=== PATIENT | female | born 1950 | race Caucasian/White ===

== ENCOUNTER 2020-11-12 07:49 | Outpatient (REF) | payer OTHER, SELFPAY ==
--- NOTE | ~2020-11-12 | XR_ITS ---
EXAMINATION: BILATERAL KNEES CLINICAL INFORMATION: Pain. COMPARISON: July 26, 2019. TECHNIQUE: An AP view of each knee is provided along with lateral and sunrise views of the left knee. FINDINGS: A right knee prosthesis is intact without failure or migration. No acute fractures are present on the right. There is a moderate to large left knee joint effusion. There is mild tricompartment narrowing with mild osteophyte formation. There is no patellar subluxation. XR/XR knee LT 2V IMPRESSION: Moderate to large left knee joint effusion. No acute fractures. Mild left tricompartment joint space narrowing with osteophyte formation. Intact right knee prosthesis.
--- NOTE | ~2020-11-12 | XR_ITS ---
EXAMINATION: BILATERAL KNEES CLINICAL INFORMATION: Pain. COMPARISON: July 26, 2019. TECHNIQUE: An AP view of each knee is provided along with lateral and sunrise views of the left knee. FINDINGS: A right knee prosthesis is intact without failure or migration. No acute fractures are present on the right. There is a moderate to large left knee joint effusion. There is mild tricompartment narrowing with mild osteophyte formation. There is no patellar subluxation. XR/XR knee standing BI IMPRESSION: Moderate to large left knee joint effusion. No acute fractures. Mild left tricompartment joint space narrowing with osteophyte formation. Intact right knee prosthesis.
== END 2020-11-12 07:50 | disposition home or self-care (01) ==
LOC: HO.HOSX 07:49
PROVIDERS: Visit Provider Orthopaedic Surgery
DX: M17.12 Unilateral primary osteoarthritis, left knee (principal)
CPT/HCPCS: 20610; 73560; 73565; J1100

== ENCOUNTER → 2021-02-08 13:08 | Outpatient (BNVA) | payer OTHER, SELFPAY | PROVIDERS: Visit Provider Orthopaedic Surgery ==

== ENCOUNTER 2021-12-17 06:00 | Outpatient (REF) | payer OTHER, SELFPAY ==
[2021-12-17 11:30] LABS: MANUAL DIFF FLAG NO
[2021-12-17 11:37] LABS: Basophils Absolute Auto 0.1 X10*3/uL (0.0-0.2); Basophils Percent Auto 0.8 % (0-2); Eosinophils Absolute Auto 0.1 X10*3/uL (0.0-0.4); Hematocrit 40.8 % (37.0-47.0); Hemoglobin 13.9 g/dl (12.0-16.0); Imm Gran Abs Auto 0.02 X10*3/uL (0.00-0.03); Imm Gran Pct Auto 0.3 % (0.0-0.4); Lymphocytes Absolute Auto 1.3 X10*3/uL (1.2-4.9); Lymphocytes Percent Auto 19.2 % (20-40); Mean Corpuscular HGB Conc 34.1 g/dl (31.0-35.0); Mean Corpuscular Hemoglobin 31.5 pg (27.0-33.0); Mean Corpuscular Volume 92.5 fL (80.0-98.0); Mean Platelet Volume 10.2 fL (9.4-12.3); Monocytes Absolute Auto 0.7 X10*3/uL (0.1-1.2); Monocytes Percent Auto 10.8 % (2-11); Neutrophils Absolute Auto 4.4 x10*3/uL (2.0-8.3); Neutrophils Percent Auto 66.9 % (45-73); Platelet Count 229 X10*3/uL (160-400); Red Blood Count 4.41 X10*6/uL (4.20-5.50); Red Cell Distribution Width 13.2 % (11.0-16.0); White Blood Count 6.5 X10*3/uL (4.8-10.8)
[2021-12-17 11:43] LABS: Appearance Urine CLOUDY; Color Urine YELLOW; Glucose Urine UA NEG (NEG); Leukocyte Esterase Urine 1+ (NEG); Nitrite Urine NEG (NEG); Specific Gravity - Urine 1.025 (1.005-1.025); UACC Culture Trigger YES; Urine Blood NEG (NEG); Urine Ketones NEG (NEG); Urine Protein NEG (NEG-TRACE)
[2021-12-17 12:02] LABS: Estimated Average Glucose 128 mg/dL; Hemoglobin A1c % 6.1 %
[2021-12-17 12:08] LABS: Alanine Aminotransferase 18 U/L (0-31); Albumin Level 4.1 g/dL (3.5-5.0); Alkaline Phosphatase 54 U/L (39-117); Anion Gap 14 (12-20); Aspartate Amino Transferase 15 U/L (5-31); Bilirubin Total 0.4 mg/dL (0.0-1.0); Blood Urea Nitrogen 27 mg/dL (9-16); Calcium 9.8 mg/dL (8.4-10.2); Carbon Dioxide 29 mmol/L (22-29); Chloride 101 mmol/L (96-108); Cholesterol 180 mg/dL; Estimated Glomerular Filt Rate > 60; Glucose Fasting 127 mg/dL (60-99); HDL Cholesterol 52 mg/dL; LDL Cholesterol Calculated 109 mg/dl; Potassium 3.8 mmol/L (3.3-5.1); Sodium 140 mmol/L (135-145); Total Protein 6.8 g/dL (6.5-8.0); Triglycerides 95 mg/dL
[2021-12-17 12:09] LABS: TSH reflex Free T4 1.45 uIU/mL (0.32-4.0)
[2021-12-17 12:16] LABS: Bacteria Urine 3+ /LPF; RBC Urine 0-2 /HPF (0); Squamous Epithelial Cell Urine 1+ /LPF
== END 2021-12-17 06:01 | disposition home or self-care (01) ==
LOC: HO.HMGCLDS 06:00
PROVIDERS: Visit Provider Internal Medicine
DX: I10 Essential (primary) hypertension (principal); E78.00 Pure hypercholesterolemia, unspecified; R73.01 Impaired fasting glucose; E66.9 Obesity, unspecified
CPT/HCPCS: 36415; 80053; 80061; 81001; 83036; 84443; 85025; 87086

== ENCOUNTER 2022-07-19 06:17 | Outpatient (REF) | payer OTHER, SELFPAY ==
[2022-07-19 11:13] LABS: MANUAL DIFF FLAG NO
[2022-07-19 11:21] LABS: Appearance Urine Turbid; Color Urine Yellow; Glucose Urine UA Negative (Negative); Leukocyte Esterase Urine Moderate (2+) (Negative); Nitrite Urine Negative (Negative); UMIC TRIGGER UACC YES; Urine Blood Negative (Negative); Urine Ketones Negative (Negative); Urine Protein Negative (Neg-Trace)
[2022-07-19 11:28] LABS: Bacteria Urine None Seen (None Seen); Hyaline Casts Urine 0-2 /LPF (0-2); RBC Urine 0-2 /HPF (0-2); UACC Culture Trigger YES
[2022-07-19 11:29] LABS: Basophils Absolute Auto 0.1 X10*3/uL (0.0-0.2); Eosinophils Absolute Auto 0.2 X10*3/uL (0.0-0.4); Eosinophils Percent Auto 4.7 % (0-4); Imm Gran Abs Auto 0.01 X10*3/uL (0.00-0.03); Imm Gran Pct Auto 0.2 % (0.0-0.4); Lymphocytes Absolute Auto 1.5 X10*3/uL (1.2-4.9); Lymphocytes Percent Auto 29.5 % (20-40); Mean Corpuscular HGB Conc 33.3 g/dl (31.0-35.0); Mean Corpuscular Hemoglobin 30.9 pg (27.0-33.0); Mean Corpuscular Volume 92.7 fL (80.0-98.0); Mean Platelet Volume 10.6 fL (9.4-12.3); Monocytes Absolute Auto 0.4 X10*3/uL (0.1-1.2); Monocytes Percent Auto 8.6 % (2-11); Neutrophils Absolute Auto 2.9 x10*3/uL (2.0-8.3); Platelet Count 230 X10*3/uL (160-400); Red Blood Count 4.53 X10*6/uL (4.20-5.50); Red Cell Distribution Width 13.5 % (11.0-16.0); White Blood Count 5.1 X10*3/uL (4.8-10.8)
[2022-07-19 11:56] LABS: Estimated Average Glucose 114 mg/dL; Hemoglobin A1c % 5.6 %
[2022-07-19 13:23] LABS: Alanine Aminotransferase 20 U/L (0-31); Albumin Level 4.3 g/dL (3.5-5.0); Alkaline Phosphatase 55 U/L (39-117); Anion Gap 11 (12-20); Aspartate Amino Transferase 17 U/L (5-31); Bilirubin Total 0.6 mg/dL (0.0-1.0); Blood Urea Nitrogen 28 mg/dL (9-16); Calcium 9.4 mg/dL (8.4-10.2); Carbon Dioxide 33 mmol/L (22-29); Chloride 99 mmol/L (96-108); Cholesterol 190 mg/dL; Estimated Glomerular Filt Rate > 60; Glucose Fasting 130 mg/dL (60-99); HDL Cholesterol 61 mg/dL; LDL Cholesterol Calculated 105 mg/dl; Potassium 4.2 mmol/L (3.3-5.1); Sodium 139 mmol/L (135-145); Total Protein 7.1 g/dL (6.5-8.0); Triglycerides 121 mg/dL; Vitamin D 25-OH Total 40.2 ng/mL (>30)
== END 2022-07-19 06:18 | disposition home or self-care (01) ==
LOC: HO.HMGCLDS 06:17
PROVIDERS: PCP Internal Medicine; Visit Provider Internal Medicine
DX: E55.9 Vitamin D deficiency, unspecified (principal); E78.00 Pure hypercholesterolemia, unspecified; R73.01 Impaired fasting glucose; I10 Essential (primary) hypertension
CPT/HCPCS: 36415; 80053; 80061; 81001; 82306; 83036; 84443; 85025; 87086

== ENCOUNTER 2023-01-06 06:17 | Outpatient (REF) | payer OTHER, MEDICARE, SELFPAY ==
[2023-01-06 11:17] LABS: MANUAL DIFF FLAG NO
[2023-01-06 11:33] LABS: Appearance Urine Clear; Color Urine Yellow; Glucose Urine UA Negative (Negative); Leukocyte Esterase Urine Moderate (2+) (Negative); Nitrite Urine Negative (Negative); PH 6.5 (5.0-9.0); Specific Gravity - Urine 1.025 (1.005-1.025); UMIC TRIGGER UACC YES; Urine Blood Negative (Negative); Urine Ketones Negative (Negative); Urine Protein Negative (Neg-Trace)
[2023-01-06 11:34] LABS: Basophils Percent Auto 0.6 % (0-2); Eosinophils Absolute Auto 0.2 X10*3/uL (0.0-0.4); Hematocrit 41.2 % (37.0-47.0); Hemoglobin 13.9 g/dl (12.0-16.0); Imm Gran Abs Auto 0.02 X10*3/uL (0.00-0.03); Imm Gran Pct Auto 0.4 % (0.0-0.4); Lymphocytes Absolute Auto 1.2 X10*3/uL (1.2-4.9); Lymphocytes Percent Auto 23.6 % (20-40); Mean Corpuscular HGB Conc 33.7 g/dl (31.0-35.0); Mean Corpuscular Hemoglobin 30.7 pg (27.0-33.0); Mean Corpuscular Volume 90.9 fL (80.0-98.0); Mean Platelet Volume 10.4 fL (9.4-12.3); Monocytes Absolute Auto 0.6 X10*3/uL (0.1-1.2); Neutrophils Absolute Auto 3.1 x10*3/uL (2.0-8.3); Neutrophils Percent Auto 61.4 % (45-73); Platelet Count 200 X10*3/uL (160-400); Red Blood Count 4.53 X10*6/uL (4.20-5.50); Red Cell Distribution Width 14.1 % (11.0-16.0)
[2023-01-06 11:37] LABS: Bacteria Urine None Seen (None Seen); Hyaline Casts Urine 0-2 /LPF (0-2); RBC Urine 0-2 /HPF (0-2); UACC Culture Trigger YES
[2023-01-06 11:49] LABS: Estimated Average Glucose 120 mg/dL; Hemoglobin A1C 151.0012 umol/L; Hemoglobin A1c % 5.8 %
[2023-01-06 12:06] LABS: Alanine Aminotransferase 27 U/L (0-31); Albumin Level 4.2 g/dL (3.5-5.0); Alkaline Phosphatase 37 U/L (39-117); Anion Gap 14 (12-20); Aspartate Amino Transferase 22 U/L (5-31); Bilirubin Total 0.7 mg/dL (0.0-1.0); Blood Urea Nitrogen 31 mg/dL (9-16); Calcium 10.4 mg/dL (8.4-10.2); Carbon Dioxide 30 mmol/L (22-29); Chloride 99 mmol/L (96-108); Cholesterol 190 mg/dL; Estimated Glomerular Filt Rate > 60; Glucose Fasting 117 mg/dL (60-99); HDL Cholesterol 58 mg/dL; LDL Cholesterol Calculated 116 mg/dl; Potassium 3.7 mmol/L (3.3-5.1); Sodium 139 mmol/L (135-145); Total Protein 7.2 g/dL (6.5-8.0); Triglycerides 83 mg/dL
[2023-01-06 12:08] LABS: TSH reflex Free T4 1.73 uIU/mL (0.32-4.0); Vitamin D 25-OH Total 60.7 ng/mL (>30)
== END 2023-01-06 06:18 | disposition home or self-care (01) ==
LOC: HO.HMGCLDS 06:17
PROVIDERS: PCP Internal Medicine; Visit Provider Internal Medicine
DX: E78.00 Pure hypercholesterolemia, unspecified (principal); E55.9 Vitamin D deficiency, unspecified; R73.01 Impaired fasting glucose; I10 Essential (primary) hypertension; R82.90 Unspecified abnormal findings in urine
CPT/HCPCS: 36415; 80053; 80061; 81001; 82306; 83036; 84443; 85025; 87086

== ENCOUNTER 2023-05-03 13:46 | Outpatient (REF) | payer MEDICARE, OTHER, SELFPAY ==
--- NOTE | ~2023-05-03 | XR_ITS ---
EXAMINATION: XR LUMBOSACRAL SPINE WITH OBLIQUES CLINICAL INFORMATION: 72 year old with other secondary scoliosis, lumbar region. COMPARISON: None available. TECHNIQUE: AP, neutral lateral and flexion-extension lateral views were obtained. FINDINGS: There is approximately 17 degrees of upper lumbar dextroscoliosis, convex to the right at L2, with mild kyne-kt-avzfs lateral listhesis at L3-L4 and mild piaro-tv-abgl lateral listhesis at L1-L2. There is 5 to 6 mm of grade 1 spondylolisthesis at L4-L5 and slight retrolisthesis at L3-L4, which appears stable on flexion and extension views without definite instability. Vertebral body heights are well maintained. Multilevel intervertebral disc space height loss is noted throughout the lumbar spine with multilevel spondylosis consistent with multilevel degenerative changes. There is partially imaged lower thoracic spondylosis. There is multilevel bilateral facet arthrosis throughout the xpq-yy-cqneg lumbar spine between L2-L3 and L5-S1 inclusive. XR/XR lumbar spine 4V min IMPRESSION: 1. Upper lumbar scoliosis as described above with spondylolisthesis at L4-L5 and slight retrolisthesis at L3-L4, but no definite instability on flexion and extension views. 2. Multilevel spondylosis, DDD and facet arthrosis.
== END 2023-05-03 13:47 | disposition home or self-care (01) ==
LOC: HO.HOSX 13:46
PROVIDERS: PCP Internal Medicine; Referring Provider Internal Medicine; Visit Provider Neurological Surgery
DX: M43.16 Spondylolisthesis, lumbar region (principal); M41.56 Other secondary scoliosis, lumbar region; M54.16 Radiculopathy, lumbar region
CPT/HCPCS: 72110

== ENCOUNTER 2023-05-03 13:46 | Outpatient (AMB) | payer MEDICARE, OTHER, SELFPAY ==
--- NOTE | 2023-05-03 13:53 | HO.SPINEOV ---
Intake Intake Visit Reasons: radiculopathy Intake Note: Ms. Colunga is here today c/o right thigh pain radiating into knee. MRI done @ [facility]/brought disc. Room Service Associate Required: No Allergies No Known Allergies [No Known Allergies*] Allergy (Verified 01/18/23 09:16) Assessment & Plan Assessment & Plan (1) Spondylolisthesis, lumbar region: Code(s): M43.16 - Spondylolisthesis, lumbar region Plan: Dear colleague Thank you for referring Taylor Colunga to the office today with a chief complaint of right leg pain. HPI: This 72-year-old active female developed severe pain radiating from her back down to her anterior thigh with tingling in her right knee. A few years ago she was still able to walk 2 miles. Last GA she was still able to walk 1 mi and currently she can hardly walk due to pain. Standing also increases the pain. The need for over shopping cart improves her symptoms. She denies significant back pain. She denies weakness. The left side is unaffected. She tried chiropractic therapy without success. She takes anti-inflammatory drugs 2 times a day to mask the pain. The pain has altered her life. She can no longer do yard work or simple house tasks PMH: Hypertension, hypercholesterolemia, right knee replacement Medications: Lisinopril, amlodipine, metoprolol and anti-inflammatory drugs Allergies: NKDA Social history: Lives with daughter Physical Exam: Pleasant female. She is able to reproduce the symptoms of to 10 minutes of standing in the office. Straight leg raise is negative. The knee reflex on the right side is diminished compared to the left side. No motor deficits. No sensory deficits. Radiological Studies: MRI done at [facility] on 02/21/2023 moderate L2-3 stenosis, she severe L3-4 stenosis due to a eccentric disc herniation compressing the right L4 nerve root, a grade 2 L4-5 spondylolisthesis with associated stenosis and a right L5-S1 disc herniation compressing the right S1 nerve root Impression/Plan: This patient is suffering from an L4 radiculopathy most likely related to the severe L3-4 spinal stenosis with an eccentric disc herniation compressing the right L4 nerve root. I cannot exclude that the spondylolisthesis is involved her symptoms but in the absence of back pain I favor the L3-4 level. Therefore offered her a simple decompression L3-4 with possible diskectomy to decompress the right L4 nerve root. She scheduled for July 11. In the meantime I refer for an L3-4 epidural steroid injection to manage the pain. Thank you for allowing me to participate in your patients care. total time spent was 50 minutes in counseling ,coordination of plan, personal review of imaging, surgical decision making and subsequent plan Mack Chaves MD, PhD Spine Fellowship Trained Neurosurgeon Director, [facility] (2) Scoliosis of lumbar region due to degenerative disease of spine in adult: Code(s): M41.56 - Other secondary scoliosis, lumbar region (3) Right lumbar radiculopathy: Code(s): M54.16 - Radiculopathy, lumbar region Orders: Orders XR lumbar spine 4V min Today M41.56 - Other secondary scoliosis, lumbar region, M43.16 - Spondylolisthesis, lumbar region, M54.16 - Radiculopathy, lumbar region Referrals Pain Management Referral M41.56 - Other secondary scoliosis, lumbar region, M43.16 - Spondylolisthesis, lumbar region, M54.16 - Radiculopathy, lumbar region Coding Level of Care Code New Pt Level 4 (90642) Diagnoses Spondylolisthesis, lumbar region M43.16 Scoliosis of lumbar region due to degenerative disease of spine in adult M41.56 Right lumbar radiculopathy M54.16
== END 2023-05-03 15:11 | disposition home or self-care (01) ==
PROVIDERS: PCP Internal Medicine; Referring Provider Internal Medicine; Visit Provider Neurological Surgery
DX: M43.16 Spondylolisthesis, lumbar region (principal); M41.56 Other secondary scoliosis, lumbar region; M54.16 Radiculopathy, lumbar region
CPT/HCPCS: 99204

== ENCOUNTER 2023-05-09 07:34 | Outpatient (REF) | payer MEDICARE, OTHER, SELFPAY ==
--- NOTE | ~2023-05-09 | FL_ITS ---
EXAMINATION: XR FLUOROSCOPY WITH IMAGES CLINICAL INFORMATION: Radiculopathy, lumbar region. COMPARISON: None available. TECHNIQUE: Fluoroscopy Supervised By: Dr. Thaddeus Olson. Fluoroscopy Time: 0.2 minutes. Cumulative Dose: 6.72 mGy. DAP: 1.44 Gycm2. Images: 2. FINDINGS: Image demonstrates needle placement and contrast injection adjacent to a posterior lateral right mid lumbar vertebral body. FL/FL guidance in treatment room IMPRESSION: Fluoroscopy guidance for pain management procedure
== END 2023-05-09 07:35 | disposition home or self-care (01) ==
LOC: CF 07:34
PROVIDERS: Visit Provider Anesthesiology
DX: M54.16 Radiculopathy, lumbar region (principal); M43.16 Spondylolisthesis, lumbar region; M41.56 Other secondary scoliosis, lumbar region
CPT/HCPCS: 64483; J1100

== ENCOUNTER 2023-05-09 15:26 | Outpatient (AMB) | payer MEDICARE, OTHER, SELFPAY ==
[2023-05-09 16:03] VITALS: BP 130/58; PULSE 78; RESP 16; O2SAT 97; BMI 37.9
--- NOTE | 2023-05-09 16:03 | A.OFFVIS_ITS ---
Intake Vital Signs 05/09/23 16:03 05/09/23 16:04 Height 5 ft 5 in 5 ft 5 in Weight 228 lb 228 lb BMI 37.9 37.9 BP 130/58 L 126/70 Blood Pressure Location Rt brachial Rt brachial Position Sitting Sitting Respiration 16 16 Pulse 78 62 Pulse Source Pulse Oximeter Pulse Oximeter Pulse Oximetry (%) 97 97 Oxygen Delivery Method Room Air Room Air Comment pre-op post-op Intake Visit Reasons: R L3-L4 TFESI/LOCAL Allergies No Known Allergies [No Known Allergies*] Allergy (Verified 05/09/23 16:04) PFSH Medical History (Updated 05/03/23 @ 14:09 by Mack Chaves MD, PhD) Lumbar degenerative disc disease Obesity (BMI 30-39.9) Insomnia Primary osteoarthritis of knees, bilateral Impaired fasting glucose Pure hypercholesterolemia Benign essential hypertension Surgical History History of arthroplasty of right knee History of tonsillectomy Family History Father Medical history unknown Mother Medical history unknown Social History Housing: House Alcohol intake: current Alcohol intake frequency: 0-2 drinks per day Alcohol type: wine and hard liquor Patient Tobacco Use Status: Former Tobacco user e-Cigarette/Vaping Use: Never Used Second Hand Smoke Exposure: Yes service: No Current occupational status: retired Cognitive needs: No Hearing needs: No Vision needs: Yes Physical Exam Vital Signs: Last Vital Signs Pulse 62 05/09/23 16:04 Resp 16 05/09/23 16:04 BP 126/70 05/09/23 16:04 Pulse Ox 97 05/09/23 16:04 Oxygen Delivery Method Room Air 05/09/23 16:04 BMI result Body Mass Index 37.9 Results Reviewed Results Reviewed: 05/09/23 15:45 dexAMETHasone sod phosphate/PF [Decadron] 10 mg .ROUTE .STK-MED ONE 05/09/23 15:46 Lidocaine HCl 1 % MPF [Xylocaine 1 % MPF] 5 ml .ROUTE .STK-MED ONE Assessment & Plan Assessment & Plan (1) Spondylolisthesis, lumbar region: Code(s): M43.16 - Spondylolisthesis, lumbar region Plan: HPI: This 72-year-old active female developed severe pain radiating from her back down to her anterior thigh with tingling in her right knee. A few years ago she was still able to walk 2 miles. Last GA she was still able to walk 1 mi and currently she can hardly walk due to pain. Standing also increases the pain. The need for over shopping cart improves her symptoms. She denies significant back pain. She denies weakness. The left side is unaffected. She tried chiropractic therapy without success. She takes anti-inflammatory drugs 2 times a day to mask the pain. The pain has altered her life. She can no longer do yard work or simple house tasks Physical Exam: Pleasant female. She is able to reproduce the symptoms of to 10 minutes of standing in the office. Straight leg raise is negative. The knee reflex on the right side is diminished compared to the left side. No motor deficits. No sensory deficits. Radiological Studies: MRI done at [facility] on 02/21/2023 moderate L2-3 stenosis, she severe L3-4 stenosis due to a eccentric disc herniation compressing the right L4 nerve root, a grade 2 L4-5 spondylolisthesis with associated stenosis and a rig ht L5-S1 disc herniation compressing the right S1 nerve root Impression/Plan: This patient is suffering from an L4 radiculopathy most likely related to the severe L3-4 spinal stenosis with an eccentric disc herniation compressing the right L4 nerve root. I cannot exclude that the spondylolisthesis is involved her symptoms but in the absence of back pain I favor the L3-4 level. Therefore offered her a simple decompression L3-4 with possible diskectomy to decompress the right L4 nerve root. She scheduled for July 11. In the meantime I refer for an L3-4 epidural steroid injection to manage the pain. (2) Scoliosis of lumbar region due to degenerative disease of spine in adult: Code(s): M41.56 - Other secondary scoliosis, lumbar region (3) Right lumbar radiculopathy: Code(s): M54.16 - Radiculopathy, lumbar region Plan: Transforaminal epidural steroid injection Informed consent was thoroughly explained to the patient before the procedure.? The patient came to the operating room.? He was positioned prone on operating table with a pillow under his abdomen.? Time-out was performed delineating correct site and side of the procedure, nature of the injection, name and date of of the patient. The lower back of the patient was prepped with ChloraPrep and draped with sterile utility towels.? C-arm was brought over the operating field and sq picture of L3 vertebra was demonstrated on the screen.? The right side was chosen as the side of the injection.? Tilting machine ipsilateral to the right at the level of L3 1st the most prominent picture of the right L4 pedicle was obtained on the screen.? On the lateral border-of the pedicle projection to the skin small amount of lidocaine 1% 3-4 cc was injected to anesthetize the skin.? After that 5 in 22 gauge Quincke point needle was inserted through the skin wheal and was advanced to were the L3-L4 foramina on anterior posterior and oblique views intermittently.? When tip of the needle touched the most superior portion of the lateral border of the pedicle the needle deviated lateral and immediately after that turned back to me to advance to the foramina. The needle advancement was performed on AP lateral and oblique views. When needle entered foramina injection of the contrast was performed demonstrating epidural and perineural spread of the contrast.? After that injection of the treatment medicine 4 cc of lidocaine 1% mixed with Kenalog 40 mg was injected into the foramina.? Injection of the contrast and injection of the treatment medicine was observed on the screen.? No intrathecal and no intravascular spread of the co ntrast was noted. The needle was removed Band-Aid was applied. The patient tolerated procedure well. She recovered uneventfully. Patient tolerated procedure well he was taken outside of the operating room where he recovered uneventfully.? He went home without immediate complications. Orders: Orders FL guidance in treatment room 05/09/23 M54.16 - Radiculopathy, lumbar region Coding Level of Care Code Procedure Only Diagnoses Spondylolisthesis, lumbar region M43.16 Scoliosis of lumbar region due to degenerative disease of spine in adult M41.56 Right lumbar radiculopathy M54.16
[2023-05-09 16:04] VITALS: BP 126/70; PULSE 62; RESP 16; O2SAT 97; BMI 37.9
== END 2023-05-09 16:04 | disposition home or self-care (01) ==
LOC: HO.PMCPRC 15:26
PROVIDERS: PCP Internal Medicine; Visit Provider Anesthesiology
DX: M54.16 Radiculopathy, lumbar region (principal); M43.16 Spondylolisthesis, lumbar region; M41.56 Other secondary scoliosis, lumbar region
CPT/HCPCS: 64483

== ENCOUNTER 2023-06-12 08:19 | Outpatient (AMB) | payer MEDICARE, OTHER, SELFPAY ==
[2023-06-12 08:22] VITALS: BP 129/70; RESP 12; BMI 37.9
--- NOTE | 2023-06-12 08:22 | A.OFFVIS_ITS ---
Intake Vital Signs 06/12/23 08:22 Height 5 ft 5 in Weight 228 lb BMI 37.9 BP 129/70 Blood Pressure Location Lt brachial Position Sitting Respiration 12 Pulse Source Pulse Oximeter Intake Visit Reasons: R L3-L4 TFESI 05/09/23/lvm Allergies No Known Allergies [No Known Allergies*] Allergy (Verified 06/12/23 08:24) HPI R L3-L4 TFESI 05/09/23/lvm HPI Details 72-year-old female who presents today to the office for a follow-up status post right L3-L4 TFESI. The patient reports 80% relief following the procedure for about four days. She now has radiating pins and needle sensation pain from her knee to her toes. She has scheduled surgery with Dr. Chaves for 07/06/23. She is taking Tylenol B.I.D. with good relief. She denies any weakness in her legs or any functional deficits. She is working full-time as a infant and toddler teacher. Past procedure: Dr. Thaddeus Olson MD 05/09/23: Right L3-L4 Transforaminal epi dural steroid injection: 80% relief for 4 days. [facility] Medical History (Updated 05/03/23 @ 14:09 by Mack Chaves MD, PhD) Lumbar degenerative disc disease Obesity (BMI 30-39.9) Insomnia Primary osteoarthritis of knees, bilateral Impaired fasting glucose Pure hypercholesterolemia Benign essential hypertension Surgical History History of arthroplasty of right knee History of tonsillectomy Family History Father Medical history unknown Mother Medical history unknown Housing: House Alcohol intake: current Alcohol intake frequency: 0-2 drinks per day Alcohol type: wine and hard liquor Patient Tobacco Use Status: Former Tobacco user e-Cigarette/Vaping Use: Never Used Second Hand Smoke Exposure: Yes service: No Current occupational status: retired Cognitive needs: No Hearing needs: No Vision needs: Yes Review of Systems Const All systems reviewed & are unremarkable except as noted in HPI and below Physical Exam Vital Signs: Last Vital Signs Resp 12 11/20/23 08:22 BP 129/70 06/12/23 08:22 BMI result Body Mass Index 37.9 General: Appears afebrile. Alert and oriented. Mood and affect appropriate. Follows and participates in conversation appropriately. Respiratory effort is unlabored. Able to transition from sit to stand unassisted. Ambulates with bilaterally normal heel strike and toe off. Results Reviewed Results Reviewed: No imaging is available for review. Assessment & Plan Assessment & Plan (1) Spondylolisthesis, lumbar region: Code(s): M43.16 - Spondylolisthesis, lumbar region (2) Scoliosis of lumbar region due to degenerative disease of spine in adult: Code(s): M41.56 - Other secondary scoliosis, lumbar region (3) Right lumbar radiculopathy: Code(s): M54.16 - Radiculopathy, lumbar region Plan The patient has a scheduled surgery with Dr. Chaves on 07/06/23. The patient can take Tylenol 650 mg up to three tablets a day for pain management in the in term. Follow-up with Dr. Olson as needed. Scribed for Dr. Stroud by Jaspreet Russo, biomedical engineering technologist, on 06/12/2023. I, Dr. Stroud, have personally reviewed and agree with the information entered by the scribe. Coding Level of Care Code Est Pt Level 3 (08709) Diagnoses Spondylolisthesis, lumbar region M43.16 Scoliosis of lumbar region due to degenerative disease of spine in adult M41.56 Right lumbar radiculopathy M54.16
== END 2023-06-12 08:41 | disposition home or self-care (01) ==
PROVIDERS: PCP Internal Medicine; Visit Provider Internal Medicine
DX: M43.16 Spondylolisthesis, lumbar region (principal); M41.56 Other secondary scoliosis, lumbar region; M54.16 Radiculopathy, lumbar region
CPT/HCPCS: 99213

== ENCOUNTER → 2023-06-12 08:19 | Outpatient (BNVA) | payer MEDICARE, OTHER, SELFPAY | PROVIDERS: PCP Internal Medicine; Visit Provider Internal Medicine | DX: M43.16 Spondylolisthesis, lumbar region (principal); M54.16 Radiculopathy, lumbar region; M41.56 Other secondary scoliosis, lumbar region | CPT/HCPCS: 99212 ==

== ENCOUNTER → 2023-06-22 14:11 | Outpatient (BNV) | payer MEDICARE, OTHER, SELFPAY | PROVIDERS: PCP Internal Medicine; Visit Provider Internal Medicine Cardiovascular Disease | DX: Z01.818 Encounter for other preprocedural examination (principal); M43.16 Spondylolisthesis, lumbar region | CPT/HCPCS: 93010 ==

== ENCOUNTER 2023-07-20 09:17 | Outpatient (AMB) | payer MEDICARE, OTHER, SELFPAY ==
[2023-07-20 09:19] VITALS: BP 130/80; PULSE 72; O2SAT 99; BMI 35.6
--- NOTE | 2023-07-20 09:19 | A.OFFPC_ITS ---
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 Accompanied by: Self / Same As Patient Allergies No Known Allergies [No Known Allergies*] Allergy (Verified 07/20/23 09:56) Medication List - Last Reconciled 07/20/23 by Volodymyr Ta MD acetaminophen ER 650 mg PO Q8H PRN amlodipine-atorvastatin 5-10 mg 1 tab PO QAM lisinopril-hydrochlorothiazide 20-12.5 mg 1 tab PO BID metoprolol succinate ER 100 mg PO QAM Tobacco use date assessed: 01/18/23 Fall risk assessment: No Falls in past year Last assessed Fall Risk: 07/20/23 Dental Screening Dental Screen Date: 07/20/23 Did you have a dental visit in the last 12 months?: Yes Did you have a dental problem in the last 6 months where you did not have access to dental care?: No Was dental information given to patient?: Patient has dentist HPI hyperlipidemia, HTN, IFG, low back pain HPI Details Patient comes in today for her follow up visit States that she is still experiencing recurrent pain in her legs, especially in the right leg Was supposed to undergo lumbar spine decompression surgery with Dr. Chaves a couple of weeks ago on 07/06/23 but this was suddenly cancelled and she still feels disappointed at not being able to get the surgery done before the hols Her surgery is now scheduled for 07/25/2023 and she is hoping that things will go as planned States that she feels okay otherwise She denies any headaches or dizziness Denies any chest pains, no SOB No nausea/vomiting, no abdominal pain No change in bowel habits noted Was not able to get her follow up labs done yet - states that she would like to have them rescheduled to sometime next month after she has her back surgery done [facility] Medical History Arthritis Lumbar degenerative disc disease Obesity (BMI 30-39.9) Insomnia Primary osteoarthritis of knees, bilateral Impaired fasting glucose Pure hypercholesterolemia Benign essential hypertension Surgical History Hx of arthroscopic knee surgery History of arthroplasty of right knee History of tonsillectomy Family History Father Medical history unknown Mother Medical history unknown Social History Household Members Other:: daughter Housing: House Are you a primary patient care coordinator to a significant other at home: No Do you presently have visiting nurse or other home services: No Alcohol intake: current Alcohol intake frequency: 0-2 drinks per day Alcohol type: wine and hard liquor Patient Tobacco Use Status: Former Tobacco user Quit Date: age 32 Tobacco use type: Cigarette Years Smoked: 20 e-Cigarette/Vaping Use: Never Used Second Hand Smoke Exposure: Yes Advance Directives Date on File: 11/29/17 service: No Current occupational status: retired Cognitive needs: No Hearing needs: No Vision needs: Yes Questionnaire Thrive Questionnaire Date Thrive assessed: 01/18/23 CHANDRAKANT-7 AMB Questionnaire CHANDRAKANT-7 Date CHANDRAKANT - 7 assessed: 01/18/23 Source: Developed by Drs. Irving Dodson, Teresa Thomason, Alfonzo Andrade and colleagues, with an educational moraima from [employer]. Review of Systems Const Denies fatigue, Denies fever(s) and Denies headache(s) ENT Denies dysphagia, Denies dizziness, Denies otalgia, Denies headache(s), Denies neck pain, Denies odynophagia and Denies sore throat Card Denies chest pain, Denies palpitations and Denies dyspnea Resp Denies cough, Denies dyspnea and Denies wheezing GI Denies abdominal pain, Denies constipation, Denies dysphagia, Denies heartburn, Denies diarrhea, Denies nausea, Denies odynophagia and Denies vomiting Denies difficulty voiding, Denies nocturia and Denies dysuria Musc Reports back pain (on and off), Denies neck pain and Reports radiating pain into limb (into both legs but much worse on the right side) Skin/Breast Denies rash Neuro Denies dizziness and Denies headache(s) Endo Denies fatigue and Denies palpitations Aller/Immun Denies wheezing Physical exam (Primary Care) Vital Signs: Last Vital Signs Pulse 72 07/20/23 09:19 BP 130/80 07/20/23 09:19 Pulse Ox 99 07/20/23 09:19 Oxygen Delivery Method Room Air 07/20/23 09:19 BMI result Body Mass Index 35.6 Tobacco/Smoking Status: Tobacco use Status Tobacco use date assessed 01/18/23 07/20/23 09:21 Patient Tobacco Use Status Former Tobacco user 07/20/23 09:21 Tobacco use type Cigarette 07/20/23 09:21 e-Cigarette/Vaping Use Never Used 07/20/23 09:21 Thrive Assessment: Date of Thrive Assessment Date Thrive assessed 01/18/23 07/20/23 09:21 Const General: no acute distress and alert HENMT Ears: TM's normal bilaterally and EAC's normal Throat: Yes posterior oropharynx normal and Yes tonsils normal (no TP congestio n) Neck Neck: Yes no lymphadenopathy and Yes supple Resp Auscultation: clear to auscultation bilaterally, no rales and no wheezes Cardio Rate: regular rate Rhythm: regular rhythm Heart sounds: no murmurs GI Palpation (GI): Soft to palpation and nontender Auscultation: normal bowel sounds Back/Spine/Pelvis Thoracic/Lumbar Spine: straight leg raise negative bilaterally, paraspinal muscle tenderness on the right in the mid lumbar and in the lower lumbar and lumbar spinal tenderness Extrem General: Yes no clubbing, cyanosis or edema Assessment and Plan Assessment & Plan (1) Pure hypercholesterolemia: Code(s): E78.00 - Pure hypercholesterolemia, unspecified Plan: Was not able to get her follow up labs done yet - states that she plans to get them done sometime next month after she has her back surgery done (her previous lab orders are updated for next month) Reinforced low cholesterol diet Continue Amlodipine-Atorvastatin 5-10 mg QD Will recheck her fasting lipids and labs in 6 months for follow up (2) Benign essential hypertension: Code(s): I10 - Essential (primary) hypertension Plan: Reinforced low sodium diet - goal is systolic BP of at least 130 to 140 mm or less Continue Lisinopril-HCT 20-12.5 mg BID, Metoprolol ER 100 mg QD and Amlodipine- Atorvastatin 5-10 mg QD (3) Impaired fasting glucose: Code(s): R73.01 - Impaired fasting glucose Plan: HgbA1c was normal at 5.8% and 5.6% when checked previously Reinforced low calorie diet/exercise as tolerated Will recheck her HgbA1c next month for follow up (4) Lumbar degenerative disc disease: Code(s): M51.36 - Other intervertebral disc degeneration, lumbar region Plan: States that her symptoms often radiate down her right thigh and leg Continue Cyclobenzaprine 5 mg Q HS PRN She experienced some temporary relief with oral prednisone taper a few months ago but prefers not to take it again unless she has to as prednisone can affect her blood sugar Lumbar spine x-rays done at [facility] on 12/21/2022 revealed (+) multilevel degenerative disease and facet arthritis Lumbar spine MRU done in February 2023 revealed (+) extensive multilevel DDD and spondylosis, with multilevel disc bulging and herniations superimposed on epidural lipomatosis, with severe spinal canal stenosis at L2-L3, L3-L4 and L4- L5 She was supposedly scheduled for L3-4 decompression with possible diskectomy to decompress the right L4 nerve root with Dr. Chaves a couple of weeks ago on 07/06/23 but this was cancelled supposedly at the last minute and she is now rescheduled to 07/25/2023 - is hoping things will go as planned this time Follow up also with pain management as scheduled (5) Primary osteoarthritis of knees, bilateral: Comment: S/P total right knee arthroplasty on 11/28/[address] Cordova - right knee has been doing well since Code(s): M17.0 - Bilateral primary osteoarthritis of knee Plan: Follow up with orthopedics as scheduled (6) Insomnia: Code(s): G47.00 - Insomnia, unspecified Qualifiers: Insomnia type: unspecified Qualified Code(s): G47.00 - Insomnia, un specified Plan: Sleep hygiene reinforced She has been advised of option of trying OTC Sleep Aids like Unisom or Tylenol PM PRN if she wants to try them (7) Obesity (BMI 30-39.9): Code(s): E66.9 - Obesity, unspecified Plan: Reinforced diet/exercise as tolerated/lose weight Plan Follow up in 6 months Orders: Orders UA CC w/rflx Micro + Cult 6 Months R30.0 - Dysuria Complete Blood Count Auto Diff 6 Months I10 - Essential (primary) hypertension Comprehensive [place]. Panel Fast 6 Months E78.00 - Pure hypercholesterolemia, unspecified Lipid Panel 6 Months E78.00 - Pure hypercholesterolemia, unspecified TSH reflex Free T4 6 Months E78.00 - Pure hypercholesterolemia, unspecified Vitamin D 25-OH Total 6 Months E55.9 - Vitamin D deficiency, unspecified Coding Level of Care Code Est Pt Level 4 (95237) Diagnoses Pure hypercholesterolemia E78.00 Benign essential hypertension I10 Impaired fasting glucose R73.01 Lumbar degenerative disc disease M51.36 Primary osteoarthritis of knees, bilateral M17.0 Insomnia, unspecified type G47.00 Insomnia type: unspecified Obesity (BMI 30-39.9) E66.9
== END 2023-07-20 10:04 | disposition home or self-care (01) ==
PROVIDERS: PCP Internal Medicine; Visit Provider Internal Medicine
DX: E78.00 Pure hypercholesterolemia, unspecified (principal); I10 Essential (primary) hypertension; E66.9 Obesity, unspecified; Z68.35 Body mass index [BMI] 35.0-35.9, adult; R73.01 Impaired fasting glucose; M51.36 Other intervertebral disc degeneration, lumbar region; M17.0 Bilateral primary osteoarthritis of knee; G47.00 Insomnia, unspecified
CPT/HCPCS: 99214

== ENCOUNTER 2023-07-25 08:10 | Day surgery (SDC) | payer MEDICARE, OTHER, SELFPAY ==
--- NOTE | 2023-06-22 | ECG_ITS ---
Test Reason : preop Blood Pressure : / mmHG Vent. Rate : 069 BPM Atrial Rate : 069 BPM P-R Int : 166 ms QRS Dur : 080 ms QT Int : 428 ms P-R-T Axes : 072 -03 047 degrees QTc Int : 458 ms Normal sinus rhythm Normal ECG When compared with ECG of 08-NOV-2017 11:00, No significant change was found Referred By: Marialuisa Barr Electronically Signed By:FRANCISCO KAUR MD
[2023-06-22 13:12] VITALS: BP 129/61; PULSE 70; RESP 20; O2SAT 98; BMI 35.8
--- NOTE | 2023-06-22 13:25 | HO.ANESPROP2 ---
Documented by User: Marialuisa Barr NP 07/07/23 11:00 HPI - Anesthesia Eval Consult details Narrative: 72yo F for L3-4 Laminotomy (poss discectomy L4), 07/25/23 No recent illness Activity very limited to pain. No CP/SOB at rest. ETOH: 1-2 wine or cocktails daily HTN. Well controlled with rx PMFSH Active Problems Active Problems: All Active Problems (Updated 06/22/23 @ 13:06 by Natasha Ortiz RN) Spondylolisthesis, lumbar region (Acute) Scoliosis of lumbar region due to degenerative disease of spine in adult (Acute) Right lumbar radiculopathy (Acute) Cough (Acute) Skin lesion of left arm (Acute) Lumbar degenerative disc disease (Acute) Obesity (BMI 30-39.9) (Acute) Insomnia (Acute) Primary osteoarthritis of knees, bilateral (Acute) Impaired fasting glucose (Acute) Pure hypercholesterolemia (Acute) Benign essential hypertension (Acute) Past Medical History Medical History Arthritis Lumbar degenerative disc disease Obesity (BMI 30-39.9) Insomnia Primary osteoarthritis of knees, bilateral Impaired fasting glucose Pure hypercholesterolemia Benign essential hypertension Family History Family History Father Medical history unknown Mother Medical history unknown Family history of problems with anesthesia: No Surgical History Surgical History Hx of arthroscopic knee surgery History of arthroplasty of right knee History of tonsillectomy History of Problems with Anesthesia: No Social History Social History Household Members Other:: daughter Housing: House Are you a primary respiratory care program director to a significant other at home: No Do you presently have visiting nurse or other home services: No Alcohol intake: current Alcohol intake frequency: 0-2 drinks per day Alcohol type: wine and hard liquor Patient Tobacco Use Status: Former Tobacco user Quit Date: age 32 Tobacco use type: Cigarette Years Smoked: 20 e-Cigarette/Vaping Use: Never Used Second Hand Smoke Exposure: Yes Advance Directives Date on File: 11/29/17 service: No Current occupational status: retired Cognitive needs: No Hearing needs: No Vision needs: Yes Meds Allergies Allergy/AdvReac Type Severity Reaction Status Date / Time No Known Allergies Allergy Verified 07/25/23 08:19 [No Known Allergies*] Home Medications Medication Instructions Recorded Confirmed Last Taken Type acetaminophen 650 mg 650 mg PO Q8H PRN Pain 06/22/23 07/25/23 Unknown History tablet,extended release amlodipine 5 mg-atorvastatin 10 mg 1 tab PO QAM 06/22/23 07/25/23 07/25/23 History tablet metoprolol succinate 100 mg 100 mg PO QAM 06/22/23 07/25/23 07/25/23 History tablet,extended release 24 hr Exam Height,Weight and Vital Signs: Height 5 ft 5 in Weight 97.522 kg Last Vital Signs Pulse 70 06/22/23 13:12 Resp 20 06/22/23 13:12 BP 129/61 06/22/23 13:12 Pulse Ox 98 06/22/23 13:12 O2 Del Method Room Air 06/22/23 13:12 Pertinent Lab Results Pertinent Lab Results: Lab Results 06/22/23 Range/Units 14:03 WBC 5.4 (4.8-10.8) X10*3/uL RBC 4.58 (4.20-5.50) X10*6/uL Hgb 14.3 (12.0-16.0) g/dl Hct 42.2 (37.0-47.0) % MCV 92.1 (80.0-98.0) fL MCH 31.2 (27.0-33.0) pg MCHC 33.9 (31.0-35.0) g/dl RDW 13.2 (11.0-16.0) % Plt Count 210 (160-400) X10*3/uL MPV 9.7 (9.4-12.3) fL Absolute Nucleated RBC 0.000 (0.0-0.012) X10*3/uL Nucleated RBC % (auto) 0.0 (0.0-0.2) /100WBC Sodium 137 (135-145) mmol/L Potassium 3.9 (3.3-5.1) mmol/L Chloride 97 (96-108) mmol/L Carbon Dioxide 31 H (22-29) mmol/L Anion Gap 13 (12-20) BUN 29 H (9-16) mg/dL Creatinine 0.78 (0.5-1.4) mg/dL Estim Creat Clear Calc 73.1 Estimated GFR > 60 Random Glucose 110 (60-115) mg/dL Calcium 10.3 H (8.4-10.2) mg/dL Narrative Narrative: EKG 05/2023 Vent. Rate : 069 BPM Atrial Rate : 069 BPM P-R Int : 166 ms QRS Dur : 080 ms QT Int : 428 ms P-R-T Axes : 072 -03 047 degrees QTc Int : 458 ms Normal sinus rhythm Normal ECG When compared with ECG of 08-NOV-2017 11:00, No significant change was found Airway Mallampati Class: IV TM Dist: >3cm Neck ROM: Full Loose/Missing/Broken Teeth: Yes (Molars missing) Heart: RRR Lungs: CTAB Assessment and Plan Assessment Anesthesia Assessment: Anesthesia Plan Discussed and PAT Visit Final Anesthetic Review Family History of Problems with Anesthesia: No History of Problems with Anesthesia: No Documented by User: Madeline Etienne MD 07/25/23 10:06 HPI - Anesthesia Eval Consult details Narrative: 72yo F for L3-4 Laminotomy (poss discectomy L4), 07/25/23 No recent illness Activity very limited due to pain. No CP/SOB at rest. ETOH: 1-2 wine or cocktails daily HTN. Well controlled with rx PMFSH Active Problems Active Problems: All Active Problems (Updated 07/25/23 @ 08:06 by Madeline Etienne MD) Spondylolisthesis, lumbar region (Acute) Scoliosis of lumbar region due to degenerative disease of spine in adult (Acute) Right lumbar radiculopathy (Acute)h Skin lesion of left arm (Acute) Lumbar degenerative disc disease (Acute) Obesity (BMI 30-39.9) (Acute) Insomnia (Acute) Primary osteoarthritis of knees, bilateral (Acute) Impaired fasting glucose (Acute) Pure hypercholesterolemia (Acute) Benign essential hypertension (Acute) Has been in contact with several people with Covid. Patient has been testing herself and has remained negative Denies CARLOS ETOH 1-2 drinks daily Past Medical History Medical History Arthritis Lumbar degenerative disc disease Obesity (BMI 30-39.9) Insomnia Primary osteoarthritis of knees, bilateral Impaired fasting glucose Pure hypercholesterolemia Benign essential hypertension Family History Family History Father Medical history unknown Mother Medical history unknown Surgical History Surgical History Hx of arthroscopic knee surgery History of arthroplasty of right knee History of tonsillectomy Social History Social History Household Members Other:: daughter Housing: House Are you a primary respiratory care program director to a significant other at home: No Do you presently have visiting nurse or other home services: No Alcohol intake: current Alcohol intake frequency: 0-2 drinks per day Alcohol type: wine and hard liquor Patient Tobacco Use Status: Former Tobacco user Quit Date: age 32 Tobacco use type: Cigarette Years Smoked: 20 e-Cigarette/Vaping Use: Never Used Second Hand Smoke Exposure: Yes Advance Directives Date on File: 11/29/17 service: No Current occupational status: retired Cognitive needs: No Hearing needs: No Vision needs: Yes Meds Allergies Allergy/AdvReac Type Severity Reaction Status Date / Time No Known Allergies Allergy Verified 07/25/23 08:19 [No Known Allergies*] Home Medications Medication Instructions Recorded Confirmed Last Taken Type acetaminophen 650 mg 650 mg PO Q8H PRN Pain 06/22/23 07/25/23 Unknown History tablet,extended release amlodipine 5 mg-atorvastatin 10 mg 1 tab PO QAM 06/22/23 07/25/23 07/25/23 History tablet metoprolol succinate 100 mg 100 mg PO QAM 06/22/23 07/25/23 07/25/23 History tablet,extended release 24 hr Exam Height,Weight and Vital Signs: Height 5 ft 5 in Weight 97.522 kg Last Vital Signs Pulse 70 06/22/23 13:12 Resp 20 06/22/23 13:12 BP 129/61 06/22/23 13:12 Pulse Ox 98 06/22/23 13:12 O2 Del Method Room Air 06/22/23 13:12 Vital Signs Temp Pulse Resp BP Pulse Ox O2 Del Method 07/25/23 08:22 97.2 F 81 16 149/55 H 99 Room Air Pertinent Lab Results Pertinent Lab Results: Lab Results 06/22/23 Range/Units 14:03 WBC 5.4 (4.8-10.8) X10*3/uL RBC 4.58 (4.20-5.50) X10*6/uL Hgb 14.3 (12.0-16.0) g/dl Hct 42.2 (37.0-47.0) % MCV 92.1 (80.0-98.0) fL MCH 31.2 (27.0-33.0) pg MCHC 33.9 (31.0-35.0) g/dl RDW 13.2 (11.0-16.0) % Plt Count 210 (160-400) X10*3/uL MPV 9.7 (9.4-12.3) fL Absolute Nucleated RBC 0.000 (0.0-0.012) X10*3/uL Nucleated RBC % (auto) 0.0 (0.0-0.2) /100WBC Sodium 137 (135-145) mmol/L Potassium 3.9 (3.3-5.1) mmol/L Chloride 97 (96-108) mmol/L Carbon Dioxide 31 H (22-29) mmol/L Anion Gap 13 (12-20) BUN 29 H (9-16) mg/dL Creatinine 0.78 (0.5-1.4) mg/dL Estim Creat Clear Calc 73.1 Estimated GFR > 60 Random Glucose 110 (60-115) mg/dL Calcium 10.3 H (8.4-10.2) mg/dL Airway Loose/Missing/Broken Teeth: Yes (Molars missing. Sone teeth missing- fell out. Denies broken or loose teeth) Assessment and Plan Assessment Anesthesia Assessment: Chart Reviewed Final Anesthetic Review NPO: Yes ASA Class: II Final Preanesthetic Review: No Changes in Pt Med Stat, Meds/Allgs Chart Reviewed, Consent Obtained/Reviewed and Anes Risks/Benef Reviewed Patient Risk: Intermediate Procedure Risk: Low Assessment/Block/Sedation in SS: Assess/Block/Sedation-SS Anesthetic Plan Anesthetic Plan: GA Disposition: Standard PACU
[2023-06-22 14:15] LABS: Hematocrit 42.2 % (37.0-47.0); Hemoglobin 14.3 g/dl (12.0-16.0); Mean Corpuscular HGB Conc 33.9 g/dl (31.0-35.0); Mean Corpuscular Hemoglobin 31.2 pg (27.0-33.0); Mean Corpuscular Volume 92.1 fL (80.0-98.0); Mean Platelet Volume 9.7 fL (9.4-12.3); Platelet Count 210 X10*3/uL (160-400); Red Blood Count 4.58 X10*6/uL (4.20-5.50); Red Cell Distribution Width 13.2 % (11.0-16.0); White Blood Count 5.4 X10*3/uL (4.8-10.8)
[2023-06-22 15:13] LABS: Anion Gap 13 (12-20); Blood Urea Nitrogen 29 mg/dL (9-16); Calcium 10.3 mg/dL (8.4-10.2); Carbon Dioxide 31 mmol/L (22-29); Chloride 97 mmol/L (96-108); Creatinine Clr Calc Pharmacy 73.1; Estimated Glomerular Filt Rate > 60; Glucose Random 110 mg/dL (60-115); Potassium 3.9 mmol/L (3.3-5.1); Sodium 137 mmol/L (135-145)
[2023-07-25] VITALS (8 sets, daily range): BP systolic 119–149; BP diastolic 55–89; PULSE 56–81; RESP 10–16; TEMP 36.1–36.2; O2SAT 96–99; BMI 37.1
--- NOTE | ~2023-07-25 | FL_ITS ---
EXAMINATION: XR FLUOROSCOPY WITH IMAGES CLINICAL INFORMATION: L3-L4 laminotomy. COMPARISON: None available. TECHNIQUE: Fluoroscopy Supervised By: Dr. Mack Chaves. Fluoroscopy Time: 0.0 minutes. Cumulative Dose: 4.69 mGy. DAP: 1.28 Gycm2. Images: 1. FINDINGS: Image demonstrates surgical instruments and probe posterior to the L3-L4 disc space FL/FL guidance in OR IMPRESSION: Fluoroscopy guidance for lumbar spine surgery
--- NOTE | 2023-07-25 07:05 | MHC.SHP ---
Pre-Procedural Eval Section A Date of Service: 07/25/23 The patient is an INPATIENT: No Changes since office visit: No Cold of Flu in the past 2 weeks, No New Medical Problems, No Changes in Medication and No Patient answered all questions The History & Physical has been completed within 30 days and I have reviewed it.: No Section B Chief Complaint: Spondylolisthesis, lumbar region Allergies: Allergies Allergy/AdvReac Type Severity Reaction Status Date / Time No Known Allergies Allergy Verified 07/20/23 09:56 [No Known Allergies*] Review of Systems Sugical H&P ROS: Negative: Constitution, Cardiovascular, Respiratory, Neurological, Psychiatric, Hem-Onc, Allergic/Immunologic, Gastrointestinal, Genitourinary, Musculoskeletal, Integumentary, Endocrine and Eyes/Ears/Nose/Throat Exam Surgical H&P Exam: Not Evaluated: HEENT, Not Evaluated: Heart, Not Evaluated: Lungs, Not Evaluated: Extremities, Not Evaluated: Abdomen, Not Evaluated: Skin and Not Evaluated: Neurological Plan Diagnosis/Plan: Unchanged right L3-4 decompression, possible diskectomy Time Spent With Patient Time: Total time managing care of this patient today __8__ minutes.
[2023-07-25] MEDS: Gabapentin 300 MG CAPSULE PO (08:34)
[2023-07-25] MEDS: methocarbamoL 750 MG TABLET PO (08:34)
[2023-07-25] MEDS: Lactated Ringers 1,000 ML 100 ML IVCONT (08:41)
--- NOTE | 2023-07-25 10:19 | P.OP_ITS ---
Operative Note Operative Note Date of Service: 07/25/23 Narrative: Preoperative Diagnosis: L3-4 spinal stenosis/lateral recess stenosis/neural foraminal stenosis Operation: Right L3-4 Laminotomy, Partial facetectomy and foraminotomy with use of microscope Consent Informed Consent was obtained for this operation. I have explained the nature, purpose and benefits of the operation. I have discussed the risks and benefit of the operation including possible complications or adverse events with patient/family. Alternative(s) were discussed with the patient with their relative benefits and risks as well as the consequences of not accepting the operation were included in obtaining consent. Surgeon: ANANT VAUGHAN MD, PHD Procedure Assisted By: Jony Petersen Description of Procedure This 72-year-old female suffering from severe right leg pain in an L4 distribution. MRI shows mild to severe L3-4 spinal stenosis, lateral recess stenosis and possible disc herniation. The patient was offered a decompression. The procedure complications were explained. The patient was consented. The patient was brought to the operating room and endotracheally intubated. The patient was turned in prone position on the Ruddy frame. Prep and drape was done followed by timeout. The Physician assistant director of admissions provided access. A mid lumbar incision was made followed by release of the paravertebral muscle on the right side to expose the L3-4 lamina and facet joints. An intraoperative x-ray was obtained to confirm the correct level. The microscope was brought in. I took over the procedure. The high-speed drill was used to do a right L3 laminotomy until flavum ligament was reached. A #2 Kerrison was used to expand the laminotomy near flush to the pedicles and to include a partial facetectomy. The flavum ligament was opened and resected with a #3 Kerrison to decompress the underlying thecal sac. The flavum ligament was removed to decompress the lateral recess and the exiting L3 nerve root. A long nerve hook could be easily passed along the medial side of the pedicles as a sign of adequate decompression. The disc space was inspected and no extruded disc was found. The microscope was removed. Hemostasis was done. The physician assistant director of admissions close the Incision in 2 layers. Steri-Strips were used to approximate incision. An OpSite with Tegaderm was used to cover the incision. All sponge needle counts were correct. Patient was extubated and transported in stable is to recovery room. Anesthesia: General Estimated Blood Loss (ml): 10 Complications: None Duration of Surgery: Under 60 Minutes Postoperative Plan: Discharge to home
--- NOTE | 2023-07-25 10:27 | P.DS_ITS ---
DS: Providers Provider Date of Service: 07/25/23 Date of discharge: 07/25/23 Primary care physician: Volodymyr Ta MD Admitting clinician: Mack Chaves DS: Diagnosis Discharge Diagnosis (1) Right lumbar radiculopathy: Status: Acute DS: Summary Time Attestation Discharge coordination time: Less than 30 minutes Quality: Safe Use of Opioids Does Pt have an Active Cancer Diagnosis on the Problem List?: No Quality: Stroke Does the patient have a stroke diagnosis?: No Physical Exam Vital Signs: Vital Signs: Last Vital Signs Temp 97.2 F 07/25/23 08:22 Pulse 81 07/25/23 08:22 Resp 16 07/25/23 08:22 BP 149/55 H 07/25/23 08:22 Pulse Ox 99 07/25/23 08:22 O2 Del Method Room Air 07/25/23 08:22 BMI result Body Mass Index 37.1 Discharge Plan Discharge Patient Disposition: Home, Self-Care Referrals: Volodymyr Ta MD [Primary Care Provider] - 1 Week Discharge Medications: New tramadol 50 mg tablet 50 mg PO Q8H PRN (Reason: pain) Qty: 10 0RF Continued lisinopril-hydrochlorothiazide 20-12.5 mg tablet 1 tab PO BID Qty: 180 3RF metoprolol succinate 100 mg tablet extended release 24 hr 100 mg PO QAM amlodipine-atorvastatin 5-10 mg tablet 1 tab PO QAM acetaminophen 650 mg Tablet Extended Release 650 mg PO Q8H PRN (Reason: Pain) Discharge Orders: Discharge Order (Routine); Ordered 07/25/23 Ordered By: Jony Sheehan Diet: Advance to usual diet Activity on Discharge: As tolerated Activity Restrictions/Additional Instructions: After your spinal surgery we ask you to observe the following restrictions/guidelines: Activity: It is normal to feel some discomfort as you increase your activity, but that will improve with time. We ask you avoid heavy lifting or acitivities that cause pain. As a general rule, 8lbs is a safe limit for lifting right after surgery. Walk as much as you feel comfortable but not to exhaustion. You will feel extra tired the first few days after surgery. Stay well hydrated. It is OK to walk up and down stairs You may return to driving when you are off narcotics (such as vicodin, oxycodone, dilaudid, etc), and you are back to normal functional capacity. If you have any concerns please check with office before driving. Return to work is specific to each patient and each surgery, so please speak with your doctor/PA at first follow up. Please bring paperwork such as FMLA at that time if you need it filled out. Medications: For optimum pain control, it is best to start with a combination of 500 mg of Tylenol every 4 hours with 600 mg of Motrin every 8 hours, and use narcotics as needed in between for breakthrough pain. We will give you a short supply of narcotics after surgery (usually one weeks worth). If you need more please call the office but do not use more than prescribed. You will need to give our office 48 hours notice if you need narcotics refilled and we do not fill narcotics on weekends or evenings. If you are on a narcotic, it is a good idea to take a stool softener such as c olace or senna to avoid constipation If you take blood thinner such as aspirin, Plavix, Coumadin, Effient, Eliquis etc for conditions such as Afib, DVT, Pulmonary embolus, coronary disease, stents etc please speak with your surgeon about specific details as to when you can resume these medications. You can resume NSAIDs on post op day 1 (eg: Motrin, Naproxen, etc). Follow up: Please call the office, , after surgery to arrange a 3 week follow up for wound check. Wound Care: You may remove your dressing on the first day after surgery. ?You may ?leave open to air. Please do not remove the steri strips underneath. they will fall off on their own in one week. IT IS NORMAL FOR THE WOUND TO OOZE OR BE BLOODY FOR A FEW DAYS AFTER SURGERY. ?IF THIS HAPPENS JUST PLACE NEW DRESSING OVER IT TO AVOID STAINING CLOTHES. You may shower on post op day # 1 We ask that you do not let the water soak the wound. If it does get wet, just towel dry lightly. Please do not scrub your incision or place any type of chemical/ointment on the wound. No tub baths, pools or jacuzzis for one month. If you have any leaking or redness from your wound, or fevers, please call office
== END 2023-07-25 12:13 | disposition home or self-care (01) ==
PROVIDERS: Nurse Practitioner; PCP Internal Medicine; Visit Provider Neurological Surgery
PROC: (CPT 63047; principal; 2023-07-25 09:50)
DX: M43.16 Spondylolisthesis, lumbar region (principal); M48.061 Spinal stenosis, lumbar region without neurogenic claudication; M41.56 Other secondary scoliosis, lumbar region; M54.16 Radiculopathy, lumbar region; I10 Essential (primary) hypertension; E78.00 Pure hypercholesterolemia, unspecified; Z96.651 Presence of right artificial knee joint; Z79.899 Other long term (current) drug therapy; Z87.891 Personal history of nicotine dependence
CPT/HCPCS: 63047; 36415; 80048; 85027; 93005; J0131; J0690; J1100; J1885; J2250; J2405; J2704; J3010

== ENCOUNTER → 2023-07-25 08:10 | Outpatient (BNV) | payer MEDICARE, OTHER, SELFPAY | PROVIDERS: PCP Internal Medicine; Visit Provider Neurological Surgery | DX: M48.062 Spinal stenosis, lumbar region with neurogenic claudication (principal); M54.16 Radiculopathy, lumbar region | CPT/HCPCS: 63047; 99499 ==

== ENCOUNTER 2023-08-15 13:54 | Outpatient (AMB) | payer MEDICARE, OTHER, SELFPAY ==
--- NOTE | 2023-08-15 14:13 | A.OFFVIS_ITS ---
Intake Intake Visit Reasons: 1st post op Intake Note: pt here for 1st post op Allergies No Known Allergies [No Known Allergies*] Allergy (Verified 07/25/23 08:19) PFSH Medical History Arthritis Lumbar degenerative disc disease Obesity (BMI 30-39.9) Insomnia Primary osteoarthritis of knees, bilateral Impaired fasting glucose Pure hypercholesterolemia Benign essential hypertension Surgical History Hx of arthroscopic knee surgery History of arthroplasty of right knee History of tonsillectomy Family History Father Medical history unknown Mother Medical history unknown Social History Household Members Other:: daughter Housing: House Are you a primary caregiver services home to a significant other at home: No Do you presently have visiting nurse or other home services: No Alcohol intake: current Alcohol intake frequency: a few times a week Alcohol type: wine and hard liquor Patient Tobacco Use Status: Former Tobacco user Quit Date: age 32 Tobacco use type: Cigarette Years Smoked: 20 e-Cigarette/Vaping Use: Never Used Second Hand Smoke Exposure: Yes Advance Directives Date on File: 11/29/17 service: No Current occupational status: retired Cognitive needs: No Hearing needs: No Vision needs: Yes Assessment & Plan Assessment & Plan (1) S/P spinal fusion: Code(s): Z98.1 - Arthrodesis status Plan Procedure: Right L3-4 Laminotomy, Partial facetectomy and foraminotomy Taylor comes in today for her 1st postoperative visit. She reports she is very satisfied with the surgery and feels much better than she did preoperatively. She states that she struggled significantly in her 1st couple of weeks postoperatively. She wanted us to know that we should consider infor berkley patients that they will be in pain for the 1st couple of weeks postoperatively. She is now starting to feel better with ?50%? reduced pain, and no significant shooting pains into her right leg. We extensively discussed postoperative inflammation in the use of [id number] pain medications. No new neurological deficits. Patient is able to ambulate well, rises from a seated position without difficulty. Incision site is closed, well healing, with no signs of drainage. We will follow-up with the patient in 6 weeks for her 2nd postoperative visit. Rachid Chaves MD,PhD [facility] Coding Level of Care Code Global (59172) Diagnoses S/P spinal fusion Z98.1
== END 2023-08-15 14:33 | disposition home or self-care (01) ==
PROVIDERS: PCP Internal Medicine; Visit Provider Physician Assistant
DX: Z98.1 Arthrodesis status (principal)
CPT/HCPCS: 99024

== ENCOUNTER → 2023-08-15 13:54 | Outpatient (BNVA) | payer MEDICARE, OTHER, SELFPAY | PROVIDERS: PCP Internal Medicine; Visit Provider Physician Assistant | DX: Z48.89 Encounter for other specified surgical aftercare (principal); Z98.1 Arthrodesis status | CPT/HCPCS: 99212 ==

== ENCOUNTER 2023-09-26 14:31 | Outpatient (AMB) | payer MEDICARE, OTHER, SELFPAY ==
--- NOTE | 2023-09-26 14:35 | A.SPINEOV_ITS ---
Intake Intake Visit Reasons: 2nd post op Intake Note: Ms. Colnuga is here today for 2nd post op. Pocket Grinder Operator Required: No Allergies No Known Allergies [No Known Allergies*] Allergy (Verified 07/25/23 08:19) Assessment & Plan Assessment & Plan (1) Right lumbar radiculopathy: Code(s): M54.16 - Radiculopathy, lumbar region Plan Procedure: Right L3-4 Laminotomy, Partial facetectomy and foraminotomy Taylor is a pleasant 73-year-old female who comes in today as a follow-up for her 1st postop visit. She reports she is very satisfied with her surgery and is doing very well. She states that the right-sided radiculopathy that she had prior to surgery has subsided. She has been completing all of her ADLs at home, but is still utilizing the stepwise approach to postoperative return to activity. She is being mindful of how much she is carrying and lifting, and is doing things in increments. She states she has 0 pain, and that she is essentially back to normal, side from the occasional ?twinges? that she gets in her low back when she is engaging in too much activity. No new neurological deficits. The patient is able to ambulate well and rises from seated position without difficulty. Her incision site is closed, well healing, without any serosanguineous drainage. Taylor is doing very well and has no complaints at this time. She may be discharged as a patient. Rachid Chaves MD,PhD [facility] Coding Level of Care Code Global (24852) Diagnoses Right lumbar radiculopathy M54.16
== END 2023-09-26 14:41 | disposition home or self-care (01) ==
PROVIDERS: PCP Internal Medicine; Visit Provider Physician Assistant
DX: M54.16 Radiculopathy, lumbar region (principal)
CPT/HCPCS: 99024

== ENCOUNTER → 2023-09-26 14:31 | Outpatient (BNVA) | payer MEDICARE, OTHER, SELFPAY | PROVIDERS: PCP Internal Medicine; Visit Provider Physician Assistant | DX: M54.16 Radiculopathy, lumbar region (principal) | CPT/HCPCS: 99212 ==

== ENCOUNTER 2024-01-18 06:14 | Outpatient (REF) | payer MEDICARE, OTHER, SELFPAY ==
[2024-01-18 11:33] LABS: Appearance Urine Clear; Color Urine Yellow; Glucose Urine UA Negative (Negative); Leukocyte Esterase Urine Small (1+) (Negative); Nitrite Urine Negative (Negative); PH 6.5 (5.0-9.0); Specific Gravity - Urine 1.015 (1.005-1.025); UMIC TRIGGER UACC YES; Urine Blood Negative (Negative); Urine Ketones Negative (Negative); Urine Protein Negative (Neg-Trace)
[2024-01-18 11:40] LABS: MANUAL DIFF FLAG NO
[2024-01-18 11:42] LABS: Basophils Percent Auto 0.8 % (0-2); Eosinophils Absolute Auto 0.1 X10*3/uL (0.0-0.4); Eosinophils Percent Auto 2.8 % (0-4); Hematocrit 42.5 % (37.0-47.0); Hemoglobin 14.3 g/dl (12.0-16.0); Imm Gran Abs Auto 0.05 X10*3/uL (0.00-0.03); Lymphocytes Absolute Auto 1.3 X10*3/uL (1.2-4.9); Lymphocytes Percent Auto 25.8 % (20-40); Mean Corpuscular HGB Conc 33.6 g/dl (31.0-35.0); Mean Corpuscular Hemoglobin 31.1 pg (27.0-33.0); Mean Corpuscular Volume 92.4 fL (80.0-98.0); Mean Platelet Volume 10.3 fL (9.4-12.3); Monocytes Absolute Auto 0.6 X10*3/uL (0.1-1.2); Neutrophils Percent Auto 58.6 % (45-73); Platelet Count 224 X10*3/uL (160-400); Red Cell Distribution Width 12.9 % (11.0-16.0); White Blood Count 5.1 X10*3/uL (4.8-10.8)
[2024-01-18 11:47] LABS: Bacteria Urine None Seen (None Seen); Hyaline Casts Urine 0-2 /LPF (0-2); RBC Urine 0-2 /HPF (0-2); Squamous Epithelial Cell Urine 0-2 /HPF (0-2); UACC Culture Trigger YES; WBC Urine 0-5 /HPF (0-5)
[2024-01-18 11:57] LABS: Estimated Average Glucose 126 mg/dL
[2024-01-18 12:15] LABS: Alanine Aminotransferase 18 U/L (0-31); Albumin Level 4.3 g/dL (3.5-5.0); Alkaline Phosphatase 48 U/L (39-117); Anion Gap 12 (12-20); Aspartate Amino Transferase 18 U/L (5-31); Bilirubin Total 0.5 mg/dL (0.0-1.0); Blood Urea Nitrogen 24 mg/dL (9-16); Calcium 9.7 mg/dL (8.4-10.2); Carbon Dioxide 32 mmol/L (22-29); Chloride 99 mmol/L (96-108); Cholesterol 195 mg/dL (<200); Estimated Glomerular Filt Rate > 60; Glucose Fasting 122 mg/dL (60-99); HDL Cholesterol 64 mg/dL (>40); LDL Cholesterol Calculated 114 mg/dL (<100); Potassium 4.2 mmol/L (3.3-5.1); Sodium 139 mmol/L (135-145); Total Protein 7.4 g/dL (6.5-8.0); Triglycerides 88 mg/dL (<150)
[2024-01-18 12:29] LABS: TSH reflex Free T4 1.23 uIU/mL (0.32-4.0)
== END 2024-01-18 06:15 | disposition home or self-care (01) ==
LOC: HO.HMGCLDS 06:14
PROVIDERS: PCP Internal Medicine; Visit Provider Internal Medicine
DX: E78.00 Pure hypercholesterolemia, unspecified (principal); E55.9 Vitamin D deficiency, unspecified; I10 Essential (primary) hypertension; R73.01 Impaired fasting glucose; R30.0 Dysuria
CPT/HCPCS: 36415; 80053; 80061; 81001; 82306; 83036; 84443; 85025; 87086

== ENCOUNTER 2024-01-22 10:23 | Outpatient (AMB) | payer MEDICARE, OTHER, SELFPAY ==
--- NOTE | 2024-01-22 10:28 | A.OFFPC_ITS ---
Vital Signs 01/22/24 10:31 Height 5 ft 5 in Weight 222 lb 2 oz BMI 37.0 BP 124/60 Blood Pressure Location Lt brachial Position Sitting Pulse 70 Pulse Source Pulse Oximeter Pulse Oximetry (%) 100 Oxygen Delivery Method Room Air Intake Visit Reasons: HTN, hyperlipidemia Intake Note: Patient is here to follow up on HTN, HLD. Outside Medical Sales Representative Required: No Director Of Event Marketing: Not Required per policy Accompanied by: Self / Same As Patient Allergies No Known Allergies [No Known Allergies*] Allergy (Verified 01/22/24 11:08) Medication List - Last Reconciled 01/22/24 by Volodymyr Ta MD amlodipine-atorvastatin 5-10 mg 1 tab PO QAM lisinopril-hydrochlorothiazide 20-12.5 mg 1 tab PO BID metoprolol succinate ER 100 mg PO QAM tramadol 50 mg PO Q8H PRN Tobacco use date assessed: 01/22/24 Fall risk assessment: No Falls in past year Last assessed Fall Risk: 01/22/24 Dental Screening Dental Screen Date: 01/22/24 Did you have a dental visit in the last 12 months?: No Did you have a dental problem in the last 6 months where you did not have access to dental care?: No Was dental information given to patient?: Patient has dentist HPI HTN, hyperlipidemia HPI Details Patient comes in today for her follow up visit States that she currently feels okay although she has been stressed out since her son moved back in with her a few months ago following his divorce States that she is still trying to figure things out and is hoping that her son will at some point be able to move out on his own but she is not feeling particularly confident about this She denies any headaches or dizziness Denies any chest pains, no SOB No nausea/vomiting, no abdominal pain No change in bowel habits noted States that her previous lower back and leg symptoms have all improved significantly with the back surgery that she underwent with Dr. Andie ferris in July 2023 and she is quite happy with the results of her surgery She had her follow up labs done a few days ago - to discuss her results [facility] Medical History Arthritis Lumbar degenerative disc disease Obesity (BMI 30-39.9) Insomnia Primary osteoarthritis of knees, bilateral Impaired fasting glucose Pure hypercholesterolemia Benign essential hypertension Surgical History (Updated 01/22/24 @ 11:25 by Volodymyr Ta MD) History of back surgery Hx of arthroscopic knee surgery History of arthroplasty of right knee History of tonsillectomy Family History Father Medical history unknown Mother Medical history unknown Social History Household Members Other:: daughter Housing: House Are you a primary resident care provider to a significant other at home: No Do you presently have visiting nurse or other home services: No Alcohol intake: current Alcohol intake frequency: a few times a week Alcohol type: wine and hard liquor Patient Tobacco Use Status: Former Tobacco user Tobacco use type: Cigarette Years Smoked: 20 e-Cigarette/Vaping Use: Never Used Second Hand Smoke Exposure: Yes Advance Directives Date on File: 11/29/17 service: No Current occupational status: retired Cognitive needs: No Hearing needs: No Vision needs: Yes Questionnaire PHQ-9 Over the last 2 weeks, how often have you been bothered by any of the following problems? 1. Little interest or pleasure in doing things: not at all 2. Feeling down, depressed, or hopeless: not at all 3. Trouble falling or staying asleep, or sleeping too much: not at all 4. Feeling tired or having little energy: not at all 5. Poor appetite or overeating: not at all 6. Feeling bad about yourself - or that you are a failure or have let yourself or your family down: not at all 7. Trouble concentrating on things, such as reading the newspaper or watching television: not at all 8. Moving or speaking so slowly that other people could have noticed. Or the opposite - being so fidgety or restless that you have been moving around a lot more than usual: not at all 9. Thoughts that you would be better off or of hurting yourself in some way: not at all Total score: 0 Depression Screening Interpretation: Negative Depression Screening Done: Yes 54587 - PHQ-9 Billing: Yes Source: Developed by Drs. Irving Dodson, Teresa Thomason, Alfonzo Andrade and colleagues, with an educational moraima from [employer]. Thrive Questionnaire Date Thrive assessed: 01/22/24 I am a: Patient What is your living situation today?: I have a steady place to live Within the past 12 months, did the food you bought not last and you didn't have the money to get more?: Never true Within the past 12 months, did you worry whether your food would run out before you got money to buy more?: Never true Do you have trouble paying for medicines?: No Do you have trouble getting transportation to medical appointments?: No Do you have trouble paying your heating and electricity bill?: No Do you have trouble taking care of your child, family member or friend?: No Do you have trouble with day-to-day activities such as bathing, preparing meals, shopping, managing finances, etc.?: No Are you currently unemployed and looking for a job?: No Are you interested in more education?: No Currently or been in a relationship where the following occur: No concerns reported THRIVE Score: 0 AUDIT C Alcohol Use Questionnaire (AUDIT-C) 1. How often do you have a drink containing alcohol?: 4 or more times a week 2. How many drinks containing alcohol do you have on a typical day when you are drinking?: 1 or 2 3. How often do you have six or more drinks on one occasion?: Never Total Score: 4 Score Reviewed/Action Taken: Yes CHANDRAKANT-7 AMB Questionnaire CHANDRAKANT-7 Date CHANDRAKANT - 7 assessed: 01/22/24 Feeling nervous, anxious, or on edge: 3 = Nearly every day Not being able to stop or control worryin = More than half the days Worrying too much about different things: 2 = More than half the days Trouble relaxin = More than half the days Being so restless that it is hard to sit still: 1 = Several days Becoming easily annoyed or irritable: 2 = More than half the days Feeling afraid as if something awful might happen: 2 = More than half the days Total CHANDRAKANT-7 score (0-4 normal; 5-9 mild; 10-14 moderate; 15-21 severe): 14 Source: Developed by Drs. Irving Dodson, Teresa Thomason, Alfonzo alas nd colleagues, with an educational moraima from [employer]. Review of Systems Const Denies chills, Denies fatigue, Denies fever(s) and Denies headache(s) ENT Denies dysphagia, Denies dizziness, Denies otalgia, Denies headache(s), Denies neck pain, Denies odynophagia and Denies sore throat Card Denies chest pain, Denies palpitations and Denies dyspnea Resp Denies cough, Denies dyspnea and Denies wheezing GI Denies abdominal pain, Denies constipation, Denies dysphagia, Denies heartburn, Denies diarrhea, Denies nausea, Denies odynophagia and Denies vomiting Denies difficulty voiding, Denies nocturia, Denies dysuria and Denies urinary urgency Musc Reports back pain (on and off - much improved since her back surgery in July 2023), Denies neck pain and Denies radiating pain into limb Skin/Breast Denies rash Neuro Denies dizziness and Denies headache(s) Psych Reports anxiety (related mostly to her son moving in back home with her after his divorce) Endo Denies fatigue and Denies palpitations Aller/Immun Denies wheezing Physical exam (Primary Care) Vital Signs: Last Vital Signs Pulse 70 01/22/24 10:31 BP 124/60 01/22/24 10:31 Pulse Ox 100 01/22/24 10:31 Oxygen Delivery Method Room Air 01/22/24 10:31 BMI result Body Mass Index 37.0 Tobacco/Smoking Status: Tobacco use Status Tobacco use date assessed 01/22/24 01/22/24 10:41 Patient Tobacco Use Status Former Tobacco user 01/22/24 10:41 Tobacco use type Cigarette 01/22/24 10:41 e-Cigarette/Vaping Use Never Used 01/22/24 10:41 PHQ-9: PHQ-9 Score PHQ-9: Total score 0 01/22/24 10:41 Depression Screening Interpretation: Negative Thrive Assessment: Date of Thrive Assessment Date Thrive assessed 01/22/24 01/22/24 10:41 Currently or been in a relationship where the following occur: No concerns reported Const General: no acute distress and alert HENMT Ears: TM's normal bilaterally and EAC's normal Throat: Yes posterior oropharynx normal and Yes tonsils normal (no TP congestion) Neck Neck: Yes no lymphadenopathy and Yes supple Thyroid: Thyroid normal Resp Auscultation: clear to auscultation bilaterally, no rales and no wheezes Cardio Rate: regular rate Rhythm: regular rhythm Heart sounds: no murmurs GI Palpation (GI): Soft to palpation and nontender Auscultation: normal bowel sounds General: Yes no CVA tenderness Back/Spine/Pelvis Back: no CVA tenderness Thoracic/Lumbar Spine: straight leg raise negative bilaterally, No paraspinal muscle tenderness and lumbar spinal tenderness (mild) Skin Rashes: no rashes Extrem General: Yes no clubbing, cyanosis or edema Results Reviewed Results Reviewed: Laboratory Tests 06/22/23 01/18/24 14:03 06:37 WBC 5.4 5.1 Hgb 14.3 14.3 Hct 42.2 42.5 Plt Count 210 224 Sodium 137 139 Potassium 3.9 4.2 Creatinine 0.78 0.73 Estimated GFR > 60 > 60 Random Glucose 110 Fasting Glucose 122 H Hemoglobin A1c % 6.0 Calcium 10.3 H 9.7 AST 18 ALT 18 Triglycerides 88 Cholesterol 195 LDL Cholesterol, Calc 114 H HDL Cholesterol 64 25-OH Vitamin D Total 53.0 TSH 1.23 Urine Protein Negative Urine Glucose (UA) Negative Urine Blood Negative Urine Nitrite Negative Ur Leukocyte Esterase Small (1+) H Assessment and Plan Assessment & Plan (1) Pure hypercholesterolemia: Code(s): E78.00 - Pure hypercholesterolemia, unspecified Plan: Results of her labs done a few days ago reviewed and discussed with patient Reinforced low cholesterol diet Continue Amlodipine-Atorvastatin 5-10 mg QD Will recheck her fasting lipids and labs in 6 months for follow up (2) Benign essential hypertension: Code(s): I10 - Essential (primary) hypertension Plan: Reinforced low sodium diet - goal is systolic BP of at least 130 to 140 mm or less Continue Lisinopril-HCT 20-12.5 mg BID, Metoprolol ER 100 mg QD and Amlodipine- Atorvastatin 5-10 mg QD (3) Impaired fasting glucose: Code(s): R73.01 - Impaired fasting glucose Plan: Her HgbA1c was normal at 5.8% and 5.6% when checked previously but cautioned patient that it is now at 6.0% on her recent labs Reinforced low calorie diet/exercise as tolerated Will recheck her HgbA1c and FBS again in 6 months for follow up (4) Lumbar degenerative disc disease: Code(s): M51.36 - Other intervertebral disc degeneration, lumbar region Plan: Lumbar spine x-rays done at [facility] on 12/21/2022 revealed (+) multilevel degenerative disease and facet arthritis Lumbar spine MRI done in February 2023 revealed (+) extensive multilevel DDD and spondylosis, with multilevel disc bulging and herniations superimposed on epidural lipomatosis, with severe spinal canal stenosis at L2-L3, L3-L4 and L4- L5 She underwent right L3-4 laminotomy, partial facetectomy and foraminotomy with Dr. Chaves on 07/25/2023 and states that her back (and leg) symptoms have all im proved significantly following her back surgery and that she could not be happier with her results She used to go to pain management but states that she has not needed to since her back surgery (5) Primary osteoarthritis of knees, bilateral: Comment: S/P total right knee arthroplasty on 11/28/[address] Cordova - right knee has been doing well since Code(s): M17.0 - Bilateral primary osteoarthritis of knee Plan: Follow up with orthopedics as scheduled (6) Insomnia: Code(s): G47.00 - Insomnia, unspecified Qualifiers: Insomnia type: unspecified Qualified Code(s): G47.00 - Insomnia, unspecified Plan: Sleep hygiene reinforced She has been advised of option of trying OTC Sleep Aids like Unisom or Tylenol PM PRN if she wants to try them (7) Obesity (BMI 30-39.9): Code(s): E66.9 - Obesity, unspecified Plan: Reinforced diet/exercise as tolerated/lose weight Plan Follow up in 6 months Orders: Orders Comprehensive Wilson. Panel Fast 6 Months E78.00 - Pure hypercholesterolemia, unspecified TSH reflex Free T4 6 Months E78.00 - Pure hypercholesterolemia, unspecified Complete Blood Count Auto Diff 6 Months D64.9 - Anemia, unspecified Lipid Panel 6 Months E78.00 - Pure hypercholesterolemia, unspecified UA CC w/rflx Micro + Cult 6 Months R30.0 - Dysuria Vitamin D 25-OH Total 6 Months E55.9 - Vitamin D deficiency, unspecified Hemoglobin A1c 6 Months R73.01 - Impaired fasting glucose Coding Level of Care Code Est Pt Level 4 (19881) Complex EM visit Add On G2211 Diagnoses Pure hypercholesterolemia E78.00 Benign essential hypertension I10 Impaired fasting glucose R73.01 Lumbar degenerative disc disease M51.36 Primary osteoarthritis of knees, bilateral M17.0 Insomnia, unspecified type G47.00 Insomnia type: unspecified Obesity (BMI 30-39.9) E66.9
[2024-01-22 10:31] VITALS: BP 124/60; PULSE 70; O2SAT 100; BMI 37.0
== END 2024-01-22 11:24 | disposition home or self-care (01) ==
PROVIDERS: PCP Internal Medicine; Visit Provider Internal Medicine
DX: E78.00 Pure hypercholesterolemia, unspecified (principal); I10 Essential (primary) hypertension; R73.01 Impaired fasting glucose; M51.36 Other intervertebral disc degeneration, lumbar region; M17.0 Bilateral primary osteoarthritis of knee; G47.00 Insomnia, unspecified; E66.9 Obesity, unspecified
CPT/HCPCS: 99214; G2211

== ENCOUNTER 2024-08-14 07:04 | Outpatient (REF) | payer MEDICARE, OTHER, SELFPAY ==
[2024-08-14 10:30] LABS: MANUAL DIFF FLAG NO
[2024-08-14 10:40] LABS: Appearance Urine Clear; Color Urine Yellow; Glucose Urine UA Negative (Negative); Leukocyte Esterase Urine Trace (Negative); Nitrite Urine Negative (Negative); UMIC TRIGGER UACC YES; Urine Blood Negative (Negative); Urine Ketones Negative (Negative); Urine Protein Negative (Neg-Trace)
[2024-08-14 10:43] LABS: Bacteria Urine None Seen (None Seen); Hyaline Casts Urine 0-2 /LPF (0-2); RBC Urine 0-2 /HPF (0-2); Squamous Epithelial Cell Urine 0-2 /HPF (0-2); WBC Urine 0-5 /HPF (0-5)
[2024-08-14 10:52] LABS: Basophils Percent Auto 0.6 % (0-2); Eosinophils Absolute Auto 0.1 X10*3/uL (0.0-0.4); Eosinophils Percent Auto 2.7 % (0-4); Hematocrit 42.8 % (37.0-47.0); Hemoglobin 14.7 g/dl (12.0-16.0); Imm Gran Abs Auto 0.01 X10*3/uL (0.00-0.03); Imm Gran Pct Auto 0.2 % (0.0-0.4); Lymphocytes Absolute Auto 1.4 X10*3/uL (1.2-4.9); Lymphocytes Percent Auto 26.2 % (20-40); Mean Corpuscular HGB Conc 34.3 g/dl (31.0-35.0); Mean Corpuscular Hemoglobin 31.1 pg (27.0-33.0); Mean Corpuscular Volume 90.5 fL (80.0-98.0); Monocytes Absolute Auto 0.6 X10*3/uL (0.1-1.2); Monocytes Percent Auto 11.3 % (2-11); Platelet Count 216 X10*3/uL (160-400); Red Blood Count 4.73 X10*6/uL (4.20-5.50); Red Cell Distribution Width 13.1 % (11.0-16.0); White Blood Count 5.2 X10*3/uL (4.8-10.8)
[2024-08-14 10:57] LABS: Estimated Average Glucose 126 mg/dL; Hemoglobin A1C 160.3765 umol/L; Total Hemoglobin (HGBA1C) 3800.4397 umol/L
[2024-08-14 11:21] LABS: Alanine Aminotransferase 23 U/L (0-31); Albumin Level 4.2 g/dL (3.5-5.0); Alkaline Phosphatase 56 U/L (39-117); Anion Gap 9 (12-20); Aspartate Amino Transferase 22 U/L (5-31); Bilirubin Total 0.5 mg/dL (0.0-1.0); Blood Urea Nitrogen 26 mg/dL (9-16); Calcium 9.9 mg/dL (8.4-10.2); Carbon Dioxide 31 mmol/L (22-29); Chloride 103 mmol/L (96-108); Cholesterol 185 mg/dL (<200); Estimated Glomerular Filt Rate > 60; Glucose Fasting 111 mg/dL (60-99); HDL Cholesterol 61 mg/dL (>40); LDL Cholesterol Calculated 104 mg/dL (<100); Potassium 4.2 mmol/L (3.3-5.1); Sodium 139 mmol/L (135-145); Total Protein 7.5 g/dL (6.5-8.0); Triglycerides 102 mg/dL (<150)
[2024-08-14 11:27] LABS: TSH reflex Free T4 2.74 uIU/mL (0.32-4.0); Vitamin D 25-OH Total 51.3 ng/mL (>30)
== END 2024-08-14 07:05 | disposition home or self-care (01) ==
LOC: HO.HMGCLDS 07:04
PROVIDERS: PCP Internal Medicine; Visit Provider Internal Medicine
DX: E78.00 Pure hypercholesterolemia, unspecified (principal); D64.9 Anemia, unspecified; E55.9 Vitamin D deficiency, unspecified; R73.01 Impaired fasting glucose; R30.0 Dysuria
CPT/HCPCS: 36415; 80053; 80061; 81001; 82306; 83036; 84443; 85025

== ENCOUNTER 2024-08-15 12:25 | Outpatient (AMB) | payer MEDICARE, OTHER, SELFPAY ==
[2024-08-15 12:33] VITALS: BP 122/66; PULSE 72; O2SAT 99; BMI 37.3
--- NOTE | 2024-08-15 12:33 | A.OFFPC_ITS ---
Vital Signs 08/15/24 12:33 Height 5 ft 5 in Weight 224 lb BMI 37.3 BP 122/66 Blood Pressure Location Lt brachial Position Sitting Pulse 72 Pulse Source Pulse Oximeter Pulse Oximetry (%) 99 Oxygen Delivery Method Room Air Intake Visit Reasons: 6 month f/u Senior Wealth Advisor Required: No Accompanied by: Self / Same As Patient Allergies No Known Allergies [No Known Allergies*] Allergy (Verified 08/15/24 12:46) Medication List - Last Reconciled 08/15/24 by Volodymyr Ta MD amlodipine-atorvastatin 5-10 mg 1 tab PO QAM lisinopril-hydrochlorothiazide 20-12.5 mg 1 tab PO BID metoprolol succinate ER 100 mg PO QAM tramadol 50 mg PO Q8H PRN Tobacco use date assessed: 08/15/24 Fall risk assessment: No Falls in past year Last assessed Fall Risk: 08/15/24 Dental Screening Dental Screen Date: 08/15/24 Did you have a dental visit in the last 12 months?: Yes Did you have a dental problem in the last 6 months where you did not have access to dental care?: No Was dental information given to patient?: Patient has dentist HPI 6 month f/u HPI Details Patient comes in today for her follow up visit States that she currently feels okay She denies any headaches or dizziness Denies any chest pains, no SOB No nausea/vomiting, no abdominal pain No change in bowel habits noted She had her follow up labs done yesterday - to discuss her results [facility] Medical History Arthritis Lumbar degenerative disc disease Obesity (BMI 30-39.9) Insomnia Primary osteoarthritis of knees, bilateral Impaired fasting glucose Pure hypercholesterolemia Benign essential hypertension Surgical History History of back surgery Hx of arthroscopic knee surgery History of arthroplasty of right knee History of tonsillectomy Family History Father Medical history unknown Mother Medical history unknown Social History Household Members Other:: daughter Housing: House Are you a primary primary care nurse practitioner to a significant other at home: No Do you presently have visiting nurse or other home services: No Alcohol intake: current Alcohol intake frequency: a few times a week Alcohol type: wine and hard liquor Patient Tobacco Use Status: Former Tobacco user Tobacco use type: Cigarette Years Smoked: 20 e-Cigarette/Vaping Use: Never Used Second Hand Smoke Exposure: Yes Advance Directives Date on File: 11/29/17 service: No Current occupational status: retired Cognitive needs: No Hearing needs: No Vision needs: Yes Questionnaire PHQ-9 Over the last 2 weeks, how often have you been bothered by any of the following problems? 1. Little interest or pleasure in doing things: not at all 2. Feeling down, depressed, or hopeless: not at all 3. Trouble falling or staying asleep, or sleeping too much: not at all 4. Feeling tired or having little energy: not at all 5. Poor appetite or overeating: not at all 6. Feeling bad about yourself - or that you are a failure or have let yourself or your family down: not at all 7. Trouble concentrating on things, such as reading the newspaper or watching television: not at all 8. Moving or speaking so slowly that other people could have noticed. Or the opposite - being so fidgety or restless that you have been moving around a lot more than usual: not at all 9. Thoughts that you would be better off or of hurting yourself in some way: not at all Total score: 0 Depression Screening Interpretation: Negative Depression Screening Done: Yes 38564 - PHQ-9 Billing: Yes Source: Developed by Drs. Irving Dodson, Teresa Thomason, Alfonzo Andrade and colleagues, with an educational moraima from [employer]. Thrive Questionnaire Date Thrive assessed: 08/15/24 I am a: Patient What is your living situation today?: I have a steady place to live Within the past 12 months, did the food you bought not last and you didn't have the money to get more?: Never true Within the past 12 months, did you worry whether your food would run out before you got money to buy more?: Never true Do you have trouble paying for medicines?: No Do you have trouble getting transportation to medical appointments?: No Do you have trouble paying your heating and electricity bill?: No Do you have trouble taking care of your child, family member or friend?: No Do you have trouble with day-to-day activities such as bathing, preparing meals, shopping, managing finances, etc.?: No Are you currently unemployed and looking for a job?: No Are you interested in more education?: No Currently or been in a relationship where the following occur: No concerns reported THRIVE Score: 0 AUDIT C Alcohol Use Questionnaire (AUDIT-C) 1. How often do you have a drink containing alcohol?: 4 or more times a week 2. How many drinks containing alcohol do you have on a typical day when you are drinking?: 1 or 2 3. How often do you have six or more drinks on one occasion?: Never Total Score: 4 Score Reviewed/Action Taken: Yes CHANDRAKANT-7 AMB Questionnaire CHANDRAKANT-7 Date CHANDRAKANT - 7 assessed: 08/15/24 Feeling nervous, anxious, or on edge: 3 = Nearly every day Not being able to stop or control worryin = More than half the days Worrying too much about different things: 2 = More than half the days Trouble relaxin = More than half the days Being so restless that it is hard to sit still: 1 = Several days Becoming easily annoyed or irritable: 2 = More than half the days Feeling afraid as if something awful might happen: 2 = More than half the days Total CHANDRAKANT-7 score (0-4 normal; 5-9 mild; 10-14 moderate; 15-21 severe): 14 Source: Developed by Drs. Irving Dodson, Teresa Thomason, Alfonzo Andrade and colleagues, with an educational moraima from [employer]. Review of Systems Const Denies chills, Denies fatigue, Denies fever(s) and Denies headache(s) ENT Denies dysphagia, Denies dizziness, Denies otalgia, Denies headache(s), Denies neck pain, Denies odynophagia and Denies sore throat Card Denies chest pain, Denies palpitations and Denies dyspnea Resp Denies chest congestion, Denies cough and Denies dyspnea GI Denies abdominal pain, Denies constipation, Denies dysphagia, Denies heartburn, Denies diarrhea, Denies nausea, Denies odynophagia and Denies vomiting Denies difficulty voiding, Denies nocturia, Denies dysuria and Denies urinary urgency Musc Reports back pain (on and off - much improved since her back surgery in July 2023), Denies neck pain and Denies radiating pain into limb Skin/Breast Denies rash Neuro Denies dizziness and Denies headache(s) Psych Reports anxiety (related mostly to her son moving in back with her after his divorce last yr) Endo Denies fatigue and Denies palpitations Physical exam (Primary Care) Vital Signs: Last Vital Signs Pulse 72 08/15/24 12:33 BP 122/66 08/15/24 12:33 Pulse Ox 99 08/15/24 12:33 Oxygen Delivery Method Room Air 08/15/24 12:33 BMI result Body Mass Index 37.3 Tobacco/Smoking Status: Tobacco use Status Tobacco use date assessed 08/15/24 08/15/24 12:42 Patient Tobacco Use Status Former Tobacco user 08/15/24 12:42 Tobacco use type Cigarette 08/15/24 12:42 e-Cigarette/Vaping Use Never Used 08/15/24 12:42 PHQ-9: PHQ-9 Score PHQ-9: Total score 0 08/15/24 12:57 Depression Screening Interpretation: Negative Thrive Assessment: Date of Thrive Assessment Date Thrive assessed 08/15/24 08/15/24 12:42 Currently or been in a relationship where the following occur: No concerns reported Const General: no acute distress and alert HENMT Ears: TM's normal bilaterally and EAC's normal Throat: Yes posterior oropharynx normal and Yes tonsils normal (no TP congestion) Neck Neck: Yes supple and No lymphadenopathy Thyroid: Thyroid normal Resp Auscultation: clear to auscultation bilaterally, no rales and no wheezes Cardio Rate: regular rate Rhythm: regular rhythm Heart sounds: no murmurs GI Palpation (GI): Soft to palpation and nontender Auscultation: normal bowel sounds General: Yes no CVA tenderness Back/Spine/Pelvis Back: no CVA tenderness Thoracic/Lumbar Spine: straight leg raise negative bilaterally, No paraspinal muscle tenderness and lumbar spinal tenderness (mild) Skin Rashes: no rashes Extrem General: Yes no clubbing, cyanosis or edema Results Reviewed Results Reviewed: Laboratory Tests 08/14/24 08/14/24 07:19 07:25 WBC 5.2 Hgb 14.7 Hct 42.8 Plt Count 216 Sodium 139 Potassium 4.2 Creatinine 0.77 Estimated GFR > 60 Fasting Glucose 111 H Hemoglobin A1c % 6.0 Calcium 9.9 AST 22 ALT 23 Triglycerides 102 Cholesterol 185 LDL Cholesterol, Calc 104 H HDL Cholesterol 61 25-OH Vitamin D Total 51.3 TSH 2.74 Ur Specific [place] 1.020 Urine Protein Negative Urine Glucose (UA) Negative Urine Blood Negative Urine Nitrite Negative Ur Leukocyte Esterase Trace H Coding Level of Care Code Est Pt Level 4 (21953) Diagnoses Pure hypercholesterolemia E78.00 Benign essential hypertension I10 Impaired fasting glucose R73.01 Degeneration of intervertebral disc of lumbar region with discogenic back pain and lower extremity pain M51.362 Disc-related pain type: discogenic back pain and lower extremity pain Primary osteoarthritis of knees, bilateral M17.0 Insomnia, unspecified type G47.00 Insomnia type: unspecified Obesity (BMI 30-39.9) E66.9 Osteoporosis screening Z13.820 Additional Codes PHQ-9 - 14361 - PHQ-9 Billing: Yes ([id number]) Assessment & Plan Assessment & Plan (1) Pure hypercholesterolemia: Code(s): E78.00 - Pure hypercholesterolemia, unspecified Category: Medical Plan: Results of her labs done yesterday reviewed and discussed with patient Reinforced low cholesterol diet Continue Amlodipine-Atorvastatin 5-10 mg QD Will recheck her fasting lipids and labs in 6 months for follow up (2) Benign essential hypertension: Code(s): I10 - Essential (primary) hypertension Category: Medical Plan: Reinforced low sodium diet - goal is systolic BP of at least 130 to 140 mm or less Continue Lisinopril-HCT 20-12.5 mg BID, Metoprolol ER 100 mg QD and Amlodipine- Atorvastatin 5-10 mg QD (3) Impaired fasting glucose: Code(s): R73.01 - Impaired fasting glucose Category: Medical Plan: Her HgbA1c is unchanged from previous at 6.0% (HgbA1c was also at 6.0% back in January 2024) She was previously normal at 5.8% and 5.6% a couple of years ago Reinforced low calorie diet/exercise as tolerated Will continue to monitor her HgbA1c and FBS regularly and recheck them again in 6 months for follow up (4) Lumbar degenerative disc disease: Code(s): M51.36 - Other intervertebral disc degeneration, lumbar region Category: Medical Qualifiers: Disc-related pain type: discogenic back pain and lower extremity pain Qualified Code(s): M51.362 - Other intervertebral disc degeneration, lumbar region with discogenic back pain and lower extremity pain Plan: Lumbar spine x-rays done at [facility] on 12/21/2022 revealed (+) multilevel degenerative disease and facet arthritis Lumbar spine MRI done in February 2023 revealed (+) extensive multilevel DDD and spondylosis, with multilevel disc bulging and herniations superimposed on epidural lipomatosis, with severe spinal canal stenosis at L2-L3, L3-L4 and L4- L5 She underwent right L3-4 laminotomy, partial facetectomy and foraminotomy with Dr. Chaves on 07/25/2023 and states that her back (and leg) symptoms have all improved significantly following her back surgery and that she could not be happier with her results She used to go to pain management but states that she has not needed to since her back surgery about a year ago (5) Primary osteoarthritis of knees, bilateral: Comment: S/P total right knee arthroplasty on 11/28/[address] Cordova - right knee has been doing well since Code(s): M17.0 - Bilateral primary osteoarthritis of knee Category: Medical Plan: Follow up with orthopedics as scheduled or as needed (6) Insomnia: Code(s): G47.00 - Insomnia, unspecified Category: Medical Qualifiers: Insomnia type: unspecified Qualified Code(s): G47.00 - Insomnia, unspecified Plan: Sleep hygiene reinforced She has been advised of option of trying OTC Sleep Aids like Unisom or Tylenol PM PRN if she wants to try them She declines offer to prescribe her some sleep aids at this time (7) Obesity (BMI 30-39.9): Code(s): E66.9 - Obesity, unspecified Category: Medical Plan: Reinforced diet/exercise as tolerated/lose weight (8) Osteoporosis screening: Code(s): Z13.820 - Encounter for screening for osteoporosis Category: Medical Plan: She has never had BMD done for osteoporosis screening in the past but now agrees to get one done - BMD ordered Plan Follow up in 6 months Orders: Orders XR DEXA axial skeleton 08/15/24 Z78.0 - Asymptomatic menopausal state Complete Blood Count Auto Diff 6 Months D64.9 - Anemia, unspecified Comprehensive [place]. Panel Fast 6 Months E78.00 - Pure hypercholesterolemia, unspecified Vitamin D 25-OH Total 6 Months E55.9 - Vitamin D deficiency, unspecified Hemoglobin A1c 6 Months R73.01 - Impaired fasting glucose Lipid Panel 6 Months E78.00 - Pure hypercholesterolemia, unspecified TSH reflex Free T4 6 Months E78.00 - Pure hypercholesterolemia, unspecified UA CC w/rflx Micro + Cult 6 Months R30.0 - Dysuria
== END 2024-08-15 13:11 | disposition home or self-care (01) ==
PROVIDERS: PCP Internal Medicine; Visit Provider Internal Medicine
DX: E78.00 Pure hypercholesterolemia, unspecified (principal); I10 Essential (primary) hypertension; E66.9 Obesity, unspecified; Z68.37 Body mass index [BMI] 37.0-37.9, adult; R73.01 Impaired fasting glucose; M51.362 Other intervertebral disc degeneration, lumbar region with discogenic back pain and lower extremity pain; M17.0 Bilateral primary osteoarthritis of knee; G47.00 Insomnia, unspecified; Z13.820 Encounter for screening for osteoporosis

== ENCOUNTER → 2024-08-15 12:25 | Outpatient (BNVA) | payer MEDICARE, OTHER, SELFPAY | PROVIDERS: PCP Internal Medicine; Visit Provider Internal Medicine | DX: E78.00 Pure hypercholesterolemia, unspecified (principal); I10 Essential (primary) hypertension; R73.01 Impaired fasting glucose; M51.362 Other intervertebral disc degeneration, lumbar region with discogenic back pain and lower extremity pain; M17.0 Bilateral primary osteoarthritis of knee; G47.00 Insomnia, unspecified; E66.9 Obesity, unspecified | CPT/HCPCS: 96127; 99212 ==

== ENCOUNTER 2024-12-24 07:56 | Outpatient (REF) | payer MEDICARE, OTHER, SELFPAY ==
--- NOTE | ~2024-12-24 | MM_ITS ---
EXAMINATION: DXA BONE DENSITY AXIAL HISTORY: Z78.0 - Asymptomatic menopausal state TECHNIQUE: [place] Dual energy absorptiometry (DEXA) of the lumbar spine, total left hip, and femoral neck was performed. COMPARISON: There are no prior studies for comparison. FINDINGS: The bone mineral density of the lumbar spine is 1.517, corresponding to a T-score of 2.9, and a Z-score of 3.6. This is indicative of normal bone mineral density. The bone mineral density of the left total hip is 1.098, corresponding to a T-score of 0.7, and a Z-score of 1.7. This is indicative of normal bone mineral density. The bone mineral density of the left femoral neck is 0.995, corresponding to a T-score of -0.3, and a Z-score of 1.0. This is indicative of normal bone mineral density. FRACTURE RISK: The FRAX index suggests a risk of major osteoporotic fracture of 7.9%, and of hip fracture 0.8%. MM/XR DEXA axial skeleton IMPRESSION: Based on bone mineral density, and according to World Health Organization (WHO) criteria, the diagnosis is consistent with normal bone mineral density. All bone density values are in grams per centimeter squared (g/cm2). Statistically, 68% of repeat scans fall within 1 SD (+/- 0.010 g/cm2 for AP spine L1-L4) and 1 SD (+/- 0.012 g/cm2 for femur total) FRAX is a trademark of the [employer], a World Health Organization (WHO) Collaborating Center. Electronically signed by: Irving Hurtado MD 12/24/2024 08:58 AM EDT
== END 2024-12-24 07:57 | disposition home or self-care (01) ==
LOC: HO.MAMMO 07:56
PROVIDERS: Visit Provider Internal Medicine
DX: Z13.820 Encounter for screening for osteoporosis (principal); Z78.0 Asymptomatic menopausal state
CPT/HCPCS: 77080

== ENCOUNTER → 2024-12-24 08:15 | Outpatient (BNV) | payer MEDICARE, OTHER, SELFPAY | PROVIDERS: Visit Provider Radiology Diagnostic Radiology | DX: E28.39 Other primary ovarian failure (principal) | CPT/HCPCS: 77080 ==

== ENCOUNTER 2025-02-11 06:05 | Outpatient (REF) | payer MEDICARE, OTHER, SELFPAY ==
[2025-02-11 10:18] LABS: Appearance Urine Clear; Glucose Urine UA Negative (Negative); PH 7.0 (5.0-9.0); Specific Gravity - Urine 1.020 (1.005-1.025); UMIC TRIGGER UACC YES
[2025-02-11 10:26] LABS: UACC Culture Trigger YES
[2025-02-11 10:36] LABS: MANUAL DIFF FLAG NO
[2025-02-11 10:40] LABS: Hematocrit 41.8 % (37.0-47.0); Hemoglobin 14.5 g/dl (12.0-16.0); Imm Gran Abs Auto 0.02 X10*3/uL (0.00-0.03); Imm Gran Pct Auto 0.3 % (0.0-0.4); Lymphocytes Absolute Auto 1.8 X10*3/uL (1.2-4.9); Mean Corpuscular HGB Conc 34.7 g/dl (31.0-35.0); Mean Corpuscular Hemoglobin 31.2 pg (27.0-33.0); Mean Corpuscular Volume 89.9 fL (80.0-98.0); NRBC Abs Auto 0.000 X10*3/uL (0.0-0.012); NRBC Pct Auto 0.0 /100WBC (0.0-0.2); Platelet Count 219 X10*3/uL (160-400); Red Blood Count 4.65 X10*6/uL (4.20-5.50); White Blood Count 5.8 X10*3/uL (4.8-10.8)
[2025-02-11 10:46] LABS: Hemoglobin A1C 167.9654 umol/L; Total Hemoglobin (HGBA1C) 3804.9112 umol/L
[2025-02-11 11:00] LABS: Alanine Aminotransferase 24 U/L (0-31); Albumin Level 4.4 g/dL (3.5-5.0); Alkaline Phosphatase 48 U/L (39-117); Anion Gap 13 (12-20); Aspartate Amino Transferase 24 U/L (5-31); Blood Urea Nitrogen 23 mg/dL (9-16); Calcium 9.6 mg/dL (8.4-10.2); Carbon Dioxide 32 mmol/L (22-29); Chloride 98 mmol/L (96-108); Cholesterol 196 mg/dL (<200); Estimated Glomerular Filt Rate > 60; HDL Cholesterol 56 mg/dL (>40); Potassium 4.0 mmol/L (3.3-5.1); Sodium 139 mmol/L (135-145); Total Protein 7.2 g/dL (6.5-8.0); Triglycerides 110 mg/dL (<150)
== END 2025-02-11 06:06 | disposition home or self-care (01) ==
LOC: HO.HMGCLDS 06:05
PROVIDERS: PCP Internal Medicine; Visit Provider Internal Medicine
DX: Z11.2 Encounter for screening for other bacterial diseases (principal); R73.01 Impaired fasting glucose; D64.9 Anemia, unspecified; E55.9 Vitamin D deficiency, unspecified; E78.00 Pure hypercholesterolemia, unspecified
CPT/HCPCS: 36415; 80053; 80061; 81001; 82306; 83036; 84443; 85025; 87086

== ENCOUNTER 2025-02-12 08:57 | Outpatient (AMB) | payer MEDICARE, OTHER, SELFPAY ==
[2025-02-12 09:02] VITALS: BP 112/68; PULSE 77; O2SAT 98; BMI 38.0
--- NOTE | 2025-02-12 09:02 | MHC.PC.OV ---
Vital Signs 02/12/25 09:02 Height 5 ft 5 in Weight 228 lb 4 oz BMI 38.0 BP 112/68 Blood Pressure Location Lt brachial Position Sitting Pulse 77 Pulse Source Pulse Oximeter Pulse Oximetry (%) 98 Oxygen Delivery Method Room Air Intake Visit Reasons: 6mth f/u Plumber'S Assistant Required: No Accompanied by: Self / Same As Patient Allergies No Known Allergies (No Known Allergies*) Allergy (Verified 02/12/25 09:16) Medication List - Last Reconciled 02/12/25 by Volodymyr Ta MD amlodipine-atorvastatin 5-10 mg 1 tab PO QAM lisinopril-hydrochlorothiazide 20-12.5 mg 1 tab PO BID metoprolol succinate ER 100 mg PO QAM Tobacco use date assessed: 02/12/25 Fall risk assessment: No Falls in past year Last assessed Fall Risk: 02/12/25 Dental Screening Dental Screen Date: 02/12/25 Did you have a dental visit in the last 12 months?: Yes Did you have a dental problem in the last 6 months where you did not have access to dental care?: No Was dental information given to patient?: Patient has dentist HPI 6mth f/u HPI Details Patient comes in today for her follow up visit States that she feels okay She denies any headaches or dizziness Denies any chest pains, no SOB No nausea/vomiting, no abdominal pain No change in bowel habits noted She had her follow up labs done yesterday - to discuss her results [facility] Medical History Arthritis Lumbar degenerative disc disease Obesity (BMI 30-39.9) Insomnia Primary osteoarthritis of knees, bilateral Impaired fasting glucose Pure hypercholesterolemia Benign essential hypertension Surgical History History of back surgery Hx of arthroscopic knee surgery History of arthroplasty of right knee History of tonsillectomy Family History Father Medical history unknown Mother Medical history unknown Social History Household Members Other:: daughter Housing: House Are you a primary healthcare risk control consultant to a significant other at home: No Do you presently have visiting nurse or other home services: No Alcohol intake: current Alcohol intake frequency: a few times a week Alcohol type: wine and hard liquor Patient Tobacco Use Status: Former Tobacco user Tobacco use type: Cigarette Years Smoked: 20 e-Cigarette/Vaping Use: Never Used Second Hand Smoke Exposure: Yes Advance Directives Date on File: 11/29/17 service: No Current occupational status: retired Cognitive needs: No Hearing needs: No Vision needs: Yes Questionnaire PHQ-9 Over the last 2 weeks, how often have you been bothered by any of the following problems? 1. Little interest or pleasure in doing things: not at all 2. Feeling down, depressed, or hopeless: not at all 3. Trouble falling or staying asleep, or sleeping too much: several days 4. Feeling tired or having little energy: not at all 5. Poor appetite or overeating: nearly every day 6. Feeling bad about yourself - or that you are a failure or have let yourself or your family down: not at all 7. Trouble concentrating on things, such as reading the newspaper or watching television: not at all 8. Moving or speaking so slowly that other people could have noticed. Or the opposite - being so fidgety or restless that you have been moving around a lot more than usual: not at all 9. Thoughts that you would be better off or of hurting yourself in some way: not at all Total score: 4 Depression Screening Interpretation: Positive Depression Screening Follow-up: Follow-up Visit Requested Depression Screening Done: Yes 75525 - PHQ-9 Billing: Yes Source: Developed by Drs. Irving Dodson, Teresa Thomason, Alfonzo Andrade and colleagues, with an educational moraima from [employer]. Thrive Questionnaire Date Thrive assessed: 02/12/25 I am a: Patient What is your living situation today?: I have a steady place to live Within the past 12 months, did the food you bought not last and you didn't have the money to get more?: Never true Within the past 12 months, did you worry whether your food would run out before you got money to buy more?: Never true Do you have trouble paying for medicines?: No Do you have trouble getting transportation to medical appointments?: No Do you have trouble paying your heating and electricity bill?: No Do you have trouble taking care of your child, family member or friend?: No Do you have trouble with day-to-day activities such as bathing, preparing meals, shopping, managing finances, etc.?: No Are you currently unemployed and looking for a job?: No Are you interested in more education?: No Please select the resources that you would like help with: None Currently or been in a relationship where the following occur: No concerns reported THRIVE Score: 0 AUDIT C Alcohol Use Questionnaire (AUDIT-C) 1. How often do you have a drink containing alcohol?: 4 or more times a week 2. How many drinks containing alcohol do you have on a typical day when you are drinking?: 1 or 2 3. How often do you have six or more drinks on one occasion?: Never Total Score: 4 Score Reviewed/Action Taken: Yes CHANDRAKANT-7 AMB Questionnaire CHANDRAKANT-7 Date CHANDRAKANT - 7 assessed: 02/12/25 Feeling nervous, anxious, or on edge: 0 = Not at all Not being able to stop or control worryin = Several days Worrying too much about different things: 1 = Several days Trouble relaxin = Several days Being so restless that it is hard to sit still: 0 = Not at all Becoming easily annoyed or irritable: 0 = Not at all Feeling afraid as if something awful might happen: 0 = Not at all Total CHANDRAKANT-7 score (0-4 normal; 5-9 mild; 10-14 moderate; 15-21 severe): 3 Source: Developed by Drs. Irving Dodson, Teresa Thomason, Alfonzo Andrade and colleagues, with an educational moraima from [employer]. Review of Systems Const Denies chills, Denies fatigue, Denies fever(s) and Denies headache(s) ENT Denies dysphagia, Denies dizziness, Denies otalgia, Denies headache(s), Denies neck pain, Denies odynophagia and Denies sore throat Card Denies chest pain, Denies palpitations and Denies dyspnea Resp Denies chest congestion, Denies cough and Denies dyspnea GI Denies abdominal pain, Denies constipation, Denies dysphagia, Denies heartburn, Denies diarrhea, Denies nausea, Denies odynophagia and Denies vomiting Denies difficulty voiding, Denies nocturia, Denies dysuria and Denies urinary urgency Musc Reports back pain (on and off but much improved since her back surgery in July 2023), Denies neck pain and Denies radiating pain into limb Skin/Breast Denies rash Neuro Denies dizziness and Denies headache(s) Psych Reports anxiety (related mostly to her son moving in back with her after his divorce last yr) Endo Denies fatigue and Denies palpitations Physical exam (Primary Care) Vital Signs: Last Vital Signs Pulse 77 02/12/25 09:02 BP 112/68 02/12/25 09:02 Pulse Ox 98 02/12/25 09:02 Oxygen Delivery Method Room Air 02/12/25 09:02 BMI result Body Mass Index 38.0 Tobacco/Smoking Status: Tobacco use Status Tobacco use date assessed 02/12/25 02/12/25 09:08 Patient Tobacco Use Status Former Tobacco user 02/12/25 09:08 Tobacco use type Cigarette 02/12/25 09:08 e-Cigarette/Vaping Use Never Used 02/12/25 09:08 PHQ-9: PHQ-9 Score PHQ-9: Total score 4 02/12/25 09:08 Depression Screening Interpretation: Positive Depression Screening Follow-up: Follow-up Visit Requested Thrive Assessment: Date of Thrive Assessment Date Thrive assessed 02/12/25 02/12/25 09:08 Currently or been in a relationship where the following occur: No concerns reported Const General: no acute distress and alert HENMT Ears: TM's normal bilaterally and EAC's normal Throat: Yes posterior oropharynx normal and Yes tonsils normal (no TP congestion) Neck Neck: Yes supple and No lymphadenopathy Thyroid: Thyroid normal Resp Auscultation: clear to auscultation bilaterally, no rales and no wheezes Cardio Rate: regular rate Rhythm: regular rhythm Heart sounds: no murmurs GI Palpation (GI): Soft to palpation and nontender Auscultation: normal bowel sounds General: Yes no CVA tenderness Back/Spine/Pelvis Back: no CVA tenderness Thoracic/Lumbar Spine: straight leg raise negative bilaterally, No paraspinal muscle tenderness and lumbar spinal tenderness (mild) Skin Rashes: no rashes Extrem General: Yes no clubbing, cyanosis or edema Results Reviewed Results Reviewed: Laboratory Tests 02/11/25 06:21 WBC 5.8 Hgb 14.5 Hct 41.8 Plt Count 219 Sodium 139 Potassium 4.0 Creatinine 0.76 Estimated GFR > 60 Fasting Glucose 121 H Hemoglobin A1c % 6.2 H Calcium 9.6 AST 24 ALT 24 Triglycerides 110 Cholesterol 196 LDL Cholesterol, Calc 118 H HDL Cholesterol 56 25-OH Vitamin D Total 39.9 TSH 1.94 Urine pH 7.0 Ur Specific [place] 1.020 Urine Protein Negative Urine Glucose (UA) Negative Urine Blood Negative Urine Nitrite Negative Ur Leukocyte Esterase Small (1+) H Coding Level of Care Code Est Pt Level 4 (03734) Diagnoses Pure hypercholesterolemia E78.00 Benign essential hypertension I10 Impaired fasting glucose R73.01 Degeneration of intervertebral disc of lumbar region with discogenic back pain and lower extremity pain M51.362 Disc-related pain type: discogenic back pain and lower extremity pain Primary osteoarthritis of knees, bilateral M17.0 Insomnia, unspecified type G47.00 Insomnia type: unspecified Obesity (BMI 30-39.9) E66.9 Additional Codes PHQ-9 - 36443 - PHQ-9 Billing: Yes ([id number]) Assessment & Plan Assessment & Plan (1) Pure hypercholesterolemia: Code(s): E78.00 - Pure hypercholesterolemia, unspecified Category: Medical Plan: Results of her labs done yesterday reviewed and discussed with patient Reinforced low cholesterol diet Continue Amlodipine-Atorvastatin 5-10 mg QD Will recheck her fasting lipids and labs in 6 months for follow up (2) Benign essential hypertension: Code(s): I10 - Essential (primary) hypertension Category: Medical Plan: Reinforced low sodium diet - goal is systolic BP of at least 130 to 140 mm or less Continue Lisinopril-HCT 20-12.5 mg BID, Metoprolol ER 100 mg QD and Amlodipine-Atorvastatin 5-10 mg QD (3) Impaired fasting glucose: Code(s): R73.01 - Impaired fasting glucose Category: Medical Plan: Her HgbA1c is at 6.2% on her recent labs (HgbA1c was previously at 6.0% a few months ago) She was normal at 5.8% and 5.6% a couple of years ago and is cautioned that her HgbA1c has been slowly but steadily creeping up over the past few years Reinforced low calorie diet/exercise as tolerated - patient reports that she drinks a lot of Phuong' wine, which is sweet Will continue to monitor her HgbA1c and FBS regularly and recheck them again in 6 months for follow up (4) Lumbar degenerative disc disease: Code(s): M51.36 - Other intervertebral disc degeneration, lumbar region Category: Medical Qualifiers: Disc-related pain type: discogenic back pain and lower extremity pain Qualified Code(s): M51.362 - Other intervertebral disc degeneration, lumbar region with discogenic back pain and lower extremity pain Plan: Lumbar spine x-rays done at [facility] on 12/21/2022 revealed (+) multilevel degenerative disease and facet arthritis Lumbar spine MRI done in February 2023 revealed (+) extensive multilevel DDD and spondylosis, with multilevel disc bulging and herniations superimposed on epidural lipomatosis, with severe spinal canal stenosis at L2-L3, L3-L4 and L4-L5 She underwent right L3-4 laminotomy, partial facetectomy and foraminotomy with Dr. Chaves on 07/25/2023 and states that her back (and leg) symptoms have all improved significantly following her back surgery and that she could not be happier with her results She used to go to pain management but states that she has not needed to since her back surgery about a year ago (5) Primary osteoarthritis of knees, bilateral: Comment: S/P total right knee arthroplasty on 11/28/[address] Cordova - right knee has been doing well since Code(s): M17.0 - Bilateral primary osteoarthritis of knee Category: Medical Plan: Follow up with orthopedics as scheduled or as needed (6) Insomnia: Code(s): G47.00 - Insomnia, unspecified Category: Medical Qualifiers: Insomnia type: unspecified Qualified Code(s): G47.00 - Insomnia, unspecified Plan: Sleep hygiene reinforced She has been advised of the options of trying OTC Sleep Aids like Unisom or Tylenol PM PRN if she wants to try them She again declines offer to prescribe her some sleep aids at this time (7) Obesity (BMI 30-39.9): Code(s): E66.9 - Obesity, unspecified Category: Medical Plan: Reinforced diet/exercise as tolerated/lose weight Plan Follow up in 6 months Orders: Orders Hemoglobin A1c 6 Months R73.01 - Impaired fasting glucose Lipid Panel 6 Months E78.00 - Pure hypercholesterolemia, unspecified Comprehensive Wickes. Panel Fast 6 Months E78.00 - Pure hypercholesterolemia, unspecified Complete Blood Count Auto Diff 6 Months D64.9 - Anemia, unspecified TSH reflex Free T4 6 Months E78.00 - Pure hypercholesterolemia, unspecified UA CC w/rflx Micro + Cult 6 Months R30.0 - Dysuria Vitamin D 25-OH Total 6 Months E55.9 - Vitamin D deficiency, unspecified
== END 2025-02-12 09:42 | disposition home or self-care (01) ==
LOC: HO.HMCH 08:58
PROVIDERS: PCP Internal Medicine; Visit Provider Internal Medicine
DX: E78.00 Pure hypercholesterolemia, unspecified (principal); I10 Essential (primary) hypertension; E66.9 Obesity, unspecified; Z68.38 Body mass index [BMI] 38.0-38.9, adult; R73.01 Impaired fasting glucose; M51.362 Other intervertebral disc degeneration, lumbar region with discogenic back pain and lower extremity pain; M17.0 Bilateral primary osteoarthritis of knee; G47.00 Insomnia, unspecified

== ENCOUNTER → 2025-02-12 08:57 | Outpatient (BNVA) | payer MEDICARE, OTHER, SELFPAY | PROVIDERS: PCP Internal Medicine; Visit Provider Internal Medicine | DX: E78.00 Pure hypercholesterolemia, unspecified (principal); R73.01 Impaired fasting glucose; I10 Essential (primary) hypertension; M51.362 Other intervertebral disc degeneration, lumbar region with discogenic back pain and lower extremity pain; M17.0 Bilateral primary osteoarthritis of knee; G47.00 Insomnia, unspecified; E66.9 Obesity, unspecified | CPT/HCPCS: 96127; 99212 ==